=== PATIENT | female | born 1945 | race Caucasian/White ===

== ENCOUNTER → 2016-07-10 | Outpatient (CLI) | payer MEDICARE, OTHER ==
[~2016-07-10] MED LIST: CLON0.5T4 PO; EMPA25TA PO; INSU100V8 SQ; METF10002 PO; OMEP20CA10 PO; OXYC-541 PO; TRAZ-170 PO; VENL150C2 PO
== END ==
LOC: MNT 12:45
PROVIDERS: ATTEND Family Medicine
DX: Z53.9 Procedure and treatment not carried out, unspecified reason (principal)

== ENCOUNTER 2016-10-10 15:27 | Inpatient (IN) ==
[2016-10-10] MEDS ORDERED: NS 1,000 ML IV ONE (16:06)
[2016-10-10] MEDS ORDERED: KETOROLAC 30 MG/ML INJECTION IVP ONE (16:06)
--- NOTE | 2016-10-10 16:10 | Emergency Department Report ---
Abdominal Pain HPI - General Chief Complaint: Abdominal Pain <Remi Burton 10/10/16 18:23> Stated Complaint: bowel obstruction <Remi Burton 10/10/16 18:23> Time Seen by Provider: 10/10/16 15:50 <Remi Burton [facility] 10/10/16 18:23> Source: patient <eb 10/10/16 16:44> Mode of arrival: ambulatory <eb 10/10/16 16:44> Limitations: no limitations <eb 10/10/16 16:44> - History of Present Illness HPI narrative: 71yo woman presents to the ER with abdominal pain. Pt has a long hx (7+ episodes ) of SBO. Most recent episodes have required open reduction of volvulus. Pt presents with identical sx to most recent episodes of SBO. <eb 10/10/16 16:44> MD complaint: abdominal pain <eb 10/10/16 16:44> Onset (ago): hour(s) <10/10/16 16:44> Consistency: constant <10/10/16 16:44> Location: diffuse <10/10/16 16:44> Severity: severe <10/10/16 16:44> Severity scale (1-10): 10 <10/10/16 16:44> Quality: aching, sharp <10/10/16 16:44> Radiation: none <10/10/16 16:44> Migration to: no migration <10/10/16 16:44> Relieving factors: nothing <10/10/16 16:44> Exacerbating factors: vomiting, movement <10/10/16 16:44> Context: history of similar episodes <10/10/16 16:44> Associated symptoms: nausea, vomiting <10/10/16 16:44> - Related Data Home Medications Medication Instructions Recorded Confirmed Metformin HCl 1,000 mg PO BID #0 tab 04/16/16 10/10/16 Trazodone HCl 50 mg PO HS #0 tab 04/16/16 10/10/16 clonazePAM [Clonazepam] 0.5 mg PO BID #0 tab 04/16/16 10/10/16 omeprazole 40 mg capsule,delayed 40 mg PO DAILY cap 09/12/16 10/10/16 release Cyanocobalamin (B-12) [Vit. B-12] 1,000 mg INJ Q2M 10/10/16 10/10/16 Empagliflozin [Jardiance] 25 mg PO DAILY 10/10/16 10/10/16 Insulin Glargine,Hum.rec.anlog 30 unit SQ HS 10/10/16 10/10/16 [Lantus Solostar] Montelukast Sodium [Singulair] 10 mg PO DAILY 10/10/16 10/10/16 Venlafaxine HCl [Venlafaxine HCl 225 mg PO DAILY 10/10/16 10/10/16 ER] <Remi Burton - 10/10/16 18:23> Allergies Allergy/AdvReac Type Severity Reaction Status Date / Time mercury (elemental) Allergy Severe "BLOODY Verified 10/10/16 16:00 RASH" codeine Allergy Intermediate DISORIENTED, Verified 10/10/16 16:00 HYPER Penicillins Allergy Intermediate HIVES Verified 10/10/16 16:00 Sulfa (Sulfonamide Allergy Unknown Verified 10/10/16 16:00 Antibiotics) CONTRAST IODINE Allergy Unknown Uncoded 04/16/16 18:41 <Remi Burton - 10/10/16 18:23> Review of Systems All systems: reviewed and negative except as stated <Caden Robertson - 10/10/16 16 :44> Gastrointestinal: Reports: abdominal pain, nausea, vomiting <JulyCaden - 03/17 16:44> [facility] Patient Stated Medical History Asthma Yes Diabetes Mellitus Type 2 Yes Obstructive Bowel Yes Clinic Medical History (Last Updated 10/10/16 @ 18:17 by Caden Robertson DO) Diabetes mellitus type 2, uncontrolled, without complications (Chronic Medical ~ 1998) Fair control. Should improve with dietary changes and more activity. If not, more aggressive diabetes treatment will be necessary. Hyperlipidemia LDL goal <100 (Chronic Medical) Multinodular goiter (nontoxic) (Chronic Medical ~2014) Nodules are not palpable. I would not necessarily recommend "routine" sonograms every 6 months. However I need to review the previous sonograms and cytology from the [facility] to make a current recommendation. Osteoporosis (Chronic Medical) Now on a drug holiday from [place], but has not had a recent DXA scan which would be helpful in following bone density while going untreated. <Remi Burton 10/10/16 18:23> Patient Stated Medical History Asthma Yes Diabetes Mellitus Type 2 Yes Obstructive Bowel Yes Clinic Medical History (Last Updated 09/18/16 @ 16:14 by Christiano Edwards MD) Diabetes mellitus type 2, uncontrolled, without complications (Chronic Medical ~ 1998) Fair control. Should improve with dietary changes and more activity. If not, more aggressive diabetes treatment will be necessary. Hyperlipidemia LDL goal <100 (Chronic Medical) Multinodular goiter (nontoxic) (Chronic Medical ~2014) Nodules are not palpable. I would not necessarily recommend "routine" sonograms every 6 months. However I need to review the previous sonograms and cytology from the [facility] to make a current recommendation. Osteoporosis (Chronic Medical) Now on a drug holiday from [place], but has not had a recent DXA scan which would be helpful in following bone density while going untreated. <10/10/16 16:44> Surgical History: tailbone repair <10/10/16 16:10> Family History: Family History (Last Reviewed 09/18/16 @ 15:36 by Christiano Edwards MD) Father Diabetes Cancer of pancreas Paternal Grandmother Cancer Paternal Grandfather Cancer <Remi Burton 10/10/16 18:23> Family History (Last Reviewed 09/18/16 @ 15:36 by Christiano Edwards MD) Father Diabetes Cancer of pancreas Paternal Grandmother Cancer Paternal Grandfather Cancer <10/10/16 16:10> - Social History Smoking status: Never smoker <10/10/16 16:10> Physical Exam - Limitations Limitations: no limitations <10/10/16 16:44> - General General appearance: alert, anxious, in distress, obese < 16:44> - Normal Exams: Head:: Normocephalic without trauma <10/10/16 16:44> Eyes:: Pupils are PERRLA w/ EOMI, No scleral icterus, irritation, or foreign bodies noted <July,Caden 10/10/16 16:44> ENMT:: No facial trauma, nasal exudates, pharyngeal erythema, or exudates are noted <eb 10/10/16 16:44> Neck:: Full range of motion, without adenopathy, JVD, bruits or thyromegaly < eb 10/10/16 16:44> Chest/Respirations:: Clear all cabral, with good airflow, and symmetry bilaterally <10/10/16 16:44> Cardiovascular:: Regular rate and rhythm, without murmur or gallop, Pulses 2+ all extremities, capillary refill, <2 seconds all extremities <eb 10/10/16 16:44> Lymphatic:: No lymphadenopathy, or lymphedema noted <10/10/16 16 :44> Musculoskeletal:: No tenderness, or deformity noted, good range of motion, all extremities <10/10/16 16:44> Integumentary:: No rashes, hives, or bruising noted, hair and nails, without abnormality <10/10/16 16:44> Neurological:: Patient is alert, and oriented, cranial nerves, motor/sensory/ cerebellar, exams w/o gross deficits, to observation <10/10/16 16:44> Psychiatric:: Patient exhibits, appropriate attention, emotion and affect <July10/10/16 16:44> - Abdominal Exam Abdominal exam: Present: soft, distention, tenderness (Diffusely), rebound, hyperactive bowel sounds. Absent: guarding, psoas sign, obturator sign, Dougherty' s sign, hernia <10/10/16 16:44> Course - Consultations Consultation #1: Dr. Lugo: Requests consult to surgeon. 181: Accepted pt for admission. <10/10/16 18:17> Time: 17:30 <10/10/16 17:40> Consultation #2: Dr. Bruno: Declines admission as primary. <10/10/16 17:47> Time: 17:40 <10/10/16 17:40> Vital Signs Temperature 98.1 F 10/10/16 15:49 Pulse Rate 65 10/10/16 15:49 Respiratory Rate 20 10/10/16 15:49 Blood Pressure 198/81 H 10/10/16 15:49 Pulse Oximetry 97 10/10/16 15:49 Temperature 98.1 F 10/10/16 15:49 Pulse Rate 65 10/10/16 15:49 Respiratory Rate 20 10/10/16 15:49 Blood Pressure 178/75 H 10/10/16 16:37 Pulse Oximetry 97 10/10/16 15:49 <Remi Burton 10/10/16 18:23> Vital Signs Temperature 98.1 F 10/10/16 15:49 Pulse Rate 65 10/10/16 15:49 Respiratory Rate 20 10/10/16 15:49 Blood Pressure 198/81 H 10/10/16 15:49 Pulse Oximetry 97 10/10/16 15:49 Temperature 98.1 F 10/10/16 15:49 Pulse Rate 65 10/10/16 15:49 Respiratory Rate 20 10/10/16 15:49 Blood Pressure 198/81 H 10/10/16 15:49 Pulse Oximetry 97 10/10/16 15:49 <10/10/16 16:10> Abdominal Pain - Differential Diagnosis Differential diagnosis: Likely: abdominal pain, constipation, gastroenteritis, small bowel obstruction <10/10/16 17:16> - Medical Records Attestation: I reviewed the patient's medical records. < 17:16> - Lab Data Attestation: I reviewed the patient's lab results. <eb 10/10/16 17: 16> Result diagrams: 10/10/16 16:36 10/10/16 16:34 <Remi Burton 10/10/16 18:23> Lab Results 10/10/16 10/10/16 10/10/16 Range/Units 16:34 16:36 17:45 WBC 13.9 H (4.5-11.0) T/MM3 RBC 4.78 (4.00-5.20) M/MM3 Hgb 14.8 (12-16) GM/DL Hct 43.8 (36-46) % MCV 91.6 (80-100) UM3 MCH 31.0 (26-34) UUG MCHC 33.8 (31-37) GM/DL RDW Std Deviation 40.8 (36.9-50.2) FL Plt Count 243 (130-400) T/MM3 MPV 10.9 (9.4-12.4) UM3 Immature Gran % (Auto) 0.1 (0.0-0.5) % Neut % (Auto) 76.0 H (33-66) % Lymph % (Auto) 16.4 L (23-45) % [place] % (Auto) 6.3 (0-9.0) % Eos % (Auto) 0.8 (0-4) % Baso % (Auto) 0.4 (0-2) % Neut # 10.6 H (1.8-7.7) T/MM3 Lymph # 2.3 (1-4.8) T/MM3 [place] # 0.9 H (0-0.8) T/MM3 Eos # 0.1 (0-0.5) T/MM3 Baso # 0.1 (0-0.2) T/MM3 Abs Immat Gran (auto) 0.02 (0.00-0.03) T/MM3 Turbidity < 20 (0-20) Sodium 140 (134-144) MEQ/L Potassium 4.3 (3.6-5) MEQ/L Chloride 106 (98-107) MEQ/L Carbon Dioxide 21 L (22-30) MEQ/L Anion Gap 13 (5-15) MEQ/L BUN 23.0 H (7-17) MG/DL Creatinine 0.8 (0.7-1.2) MG/DL GFR Calculation 70 BUN/Creatinine Ratio 29 H (6-26) RATIO Glucose 103 (65-110) MG/DL Calculated Osmolality 273 (261-280) MOSM/KG Calcium 9.9 (8.4-10.2) MG/DL Total Bilirubin 0.50 (0.20-1.30) MG/DL Icterus Index < 2 (0-7) AST 30 (14-36) U/L ALT 41 (9-52) U/L Alkaline Phosphatase 169 H (38-126) U/L Total Protein 8.3 H (6.3-8.2) G/DL Albumin 4.7 (3.5-5.0) G/DL Globulin 3.6 (2.4-3.6) G/DL Albumin/Globulin Ratio 1.3 (1.1-2.2) RATIO Lipase 85 (23-300) U/L Specimen Hemolysis < 15 (0-25) Ur Collection Type Urine, clean catch Urine Color Yellow (YELLOW) Urine Clarity Cloudy Urine pH 6.0 (5.0-8.0) Ur Specific [place] 1.010 L (1.015-1.025) Urine Protein Negative (NEGATIVE) Urine Glucose (UA) 3+ A (NEGATIVE) Urine Ketones 1+ A (NEGATIVE) Urine Occult Blood Trace-intact (NEGATIVE) Urine Nitrate Negative (NEGATIVE) Urine Bilirubin Negative (NEGATIVE) Urine Urobilinogen 0.2 (NORMAL) EU/DL Ur Leukocyte Esterase 1+ A (NEGATIVE) Urine RBC 3-5 H (0-3) /HPF Urine WBC 5-10 H (0-5) /HPF Ur Squamous Epith Cells 0-5 Urine Bacteria 3+ H (NEGATIVE) Ur Culture Indicated? Cult not indicated <Remi Burton 10/10/16 18:23> - Radiology Data Attestation: I reviewed the patient's radiology results. <eb 17:16> KUB: Obstructive bowel gas pattern. <eb 10/10/16 17:16> Disposition Clinical Impression: Small bowel obstruction, Small bowel obstruction <Josephine10/10/16 18:23> Disposition: 02 To [facility] <Josephine10/10/16 18:23> Condition: Improved <Josephine10/10/16 18:23> Instructions: <JosephineRemi 10/10/16 18:23> Prescriptions: No Action Insulin Glargine,Hum.rec.anlog [Lantus Solostar] 30 unit SQ HS Empagliflozin [Jardiance] 25 mg PO DAILY Venlafaxine HCl [Venlafaxine HCl ER] 225 mg PO DAILY Cyanocobalamin (B-12) [Vit. B-12] 1,000 mg INJ Q2M Metformin HCl 1,000 mg PO BID #0 tab clonazePAM [Clonazepam] 0.5 mg PO BID #0 tab Trazodone HCl 50 mg PO HS #0 tab Montelukast Sodium [Singulair] 10 mg PO DAILY omeprazole 40 mg capsule,delayed release 40 mg PO DAILY cap <Remi Burton - 10/10/16 18:23> Referrals: Jeanna Osorio MD [Family Provider] - <Remi Burton - 10/10 18:23> Forms: <Remi Burton - 10/10/16 18:23> Time of Disposition: 18:17 <Caden Robertson [facility] 10/10/16 18:17> - Seen By: physician <Caden Robertson [facility] 10/10/16 18:17>
[2016-10-10] MEDS ORDERED: ONDANSETRON 4 MG/2 ML INJECTION IVP ONE (16:16)
[2016-10-10] MEDS: SALINE FLUSH 10ml SYRINGE IVF PRN ×3 (16:29→20:19)
[2016-10-10] MEDS ORDERED: MORPHINE SULFATE 2 MG SYRINGE IVP ONE (16:42)
[2016-10-10] MEDS ORDERED: IOHEXOL 300mg/ml 100ml INJECTION ONE (18:03)
[2016-10-10 19:57] VITALS: BMI 36.0
[2016-10-10] MEDS ORDERED: NS 1,000 ML IV SCH (20:00)
[2016-10-10] MEDS ORDERED: MORPHINE SULFATE 2 MG SYRINGE IVP PRN (20:00)
--- NOTE | 2016-10-10 20:04 | History & Physical Report ---
<Rudy Hardin - Last Filed: 10/10/16 20:57> History of Present Illness Date: 10/10/16 Chief complaint: abd pain HPI: very pleasant 71-year-old white female presents to the emergency room with 1 week worth of abdominal pain. then mainly on her left side, she denies any epigastric 'stomach pain, this is been associated with bloating, and she's not had a bowel movement in 3 days. she rarely passes flatus, that she woke up actually feeling fine this morning, she ate breakfast, but then around 11;30 for pain became much worse. severe cramping, across her entire abdomen. she vomited once, and then had some dry heaves throughout the day. try to lay down for a couple hours but because the pain became excruciating she came to the hospital. there a kub determined she had a small bowel obstruction, similar to those that she's had the past, she has a complicated intra-abdominal surgical history, this started around 1998 when she had a hysterectomy/BSO, following this she had pancreatitis, she had a cyst that was 'stapled to her stomach', this led to some complications, she later had a cholecystectomy, and following recovery of this has had 2 hernias repaired with mesh (unclear timing to me) and several episodes of SBO. The last open surgery she had to relieve an obstruction was 15 years ago, she has had NG tubes placed to deal with instructions a few times since then, the last one was about 2 years ago. She actually had an attempted gastric bypass surgery for weight loss, this was 5 years ago, but they were unable to complete this because of the previous surgeries etc. [facility]. She recently moved from [facility] to the near her grandson and son here in [place] her pain initially was 10 out of 10, as i'm visiting with her she is nauseated and has pain of about 9/10. she is only received 1 dose of 2 mg so far. a verbal report given to me by the daytime hospitalist indicates scan showed a transition point in the left abdominal region around some mesh Review of Systems All systems: reviewed and no additional remarkable complaints except as stated ( she had recent tailbone procedure in May (sacroplasty) and has occasional R sided sciatica. She has not taken any pills or meds today. Sugar this am 2 h post prandial was 187, not taken since then) Review of systems: some chills/sweats but no marshall fevers. Denies ALFARO, denies dysuria, hx constipation and miralax makes her sick, linzess " did not work" [facility] Patient Stated Medical History Glaucoma watching for Asthma Yes Diabetes Mellitus Type 2 Yes Gastroesophageal Reflux Yes Disease Hiatal Hernia Yes Obstructive Bowel Yes: 9, bowel surgeries no resection Other GI Yes: barretts esophagus Shingles Yes: 5 years ago Depression Yes Clinic Medical History (Last Updated 10/10/16 @ 18:17 by Caden Robertson DO) Diabetes mellitus type 2, uncontrolled, without complications (Chronic Medical ~ 1998) Fair control. Should improve with dietary changes and more activity. If not, more aggressive diabetes treatment will be necessary. Hyperlipidemia LDL goal <100 (Chronic Medical) Multinodular goiter (nontoxic) (Chronic Medical ~2014) Nodules are not palpable. I would not necessarily recommend "routine" sonograms every 6 months. However I need to review the previous sonograms and cytology from the [facility] to make a current recommendation. Osteoporosis (Chronic Medical) Now on a drug holiday from [place], but has not had a recent DXA scan which would be helpful in following bone density while going untreated. Sacral fracture 2016 s/p sacroplasty May 2016 Surgical History: tailbone repair. 1998 MACY /BSO. 2011 attempted gastric bypass, aborted d/t adhesions etc. 2001 open SBO release. 1998ish - cholecystectomy, pancreatic cyst issues Family History: Family History (Last Reviewed 09/18/16 @ 15:36 by Christiano Edwards MD) Father Diabetes Cancer of pancreas Paternal Grandmother Cancer Paternal Grandfather Cancer - Social History Smoking status: Former smoker Alcohol intake frequency: holidays/special occasions only Housing: house Household members: spouse Social history: Moved from [place], [place] Apr 2016 to be closer to son and grandson to help with her who has dementia Medications Home Medications Medication Instructions Recorded Confirmed Type Metformin HCl 1,000 mg PO BID #0 tab 04/16/16 10/10/16 History Trazodone HCl 50 mg PO HS #0 tab 04/16/16 10/10/16 History clonazePAM [Clonazepam] 0.5 mg PO BID #0 tab 04/16/16 10/10/16 History omeprazole 40 mg capsule,delayed 40 mg PO DAILY cap 09/12/16 10/10/16 History release Cyanocobalamin (B-12) [Vit. B-12] 1,000 mg INJ Q2M 10/10/16 10/10/16 History Empagliflozin [Jardiance] 25 mg PO DAILY 10/10/16 10/10/16 History Insulin Glargine,Hum.rec.anlog 30 unit SQ HS 10/10/16 10/10/16 History [Lantus Solostar] Montelukast Sodium [Singulair] 10 mg PO DAILY 10/10/16 10/10/16 History Venlafaxine HCl [Venlafaxine HCl 225 mg PO DAILY 10/10/16 10/10/16 History ER] Allergies Allergy/AdvReac Type Severity Reaction Status Date / Time mercury (elemental) Allergy Severe "BLOODY Verified 10/10/16 16:00 RASH" codeine Allergy Intermediate DISORIENTED, Verified 10/10/16 16:00 HYPER Penicillins Allergy Intermediate HIVES Verified 10/10/16 16:00 Sulfa (Sulfonamide Allergy Unknown Verified 10/10/16 16:00 Antibiotics) CONTRAST IODINE Allergy Unknown Uncoded 04/16/16 18:41 Exam Vital Signs: Temperature 97.5 F 10/10/16 19:32 Pulse Rate 54 L 10/10/16 19:32 Respiratory Rate 19 10/10/16 19:32 Blood Pressure 167/68 H 10/10/16 19:32 Pulse Oximetry 99 10/10/16 19:32 Oxygen Delivery Method Room Air Height: 1.57 m Weight: 89.4 kg Body Mass Index: 36.0 - Constitutional Present: mild distress, well nourished, obese - Routine HEENT Exam Head: Present: normocephalic Eye: Present: EOMI, PERRL - Routine Respiratory Exam Present: CTA bilaterally. Absent: accessory muscle use, wheezes - Routine Cardiovascular Exam Present: RRR, S1, S2, no murmur - Routine Abdominal Exam Present: soft, tenderness, distended - Routine Extremities Exam Present: edema, full ROM (1+ edema) - Routine Skin Exam Present: intact - Routine Neurological Exam Present: alert, oriented X3 - Routine Psychiatric Exam Present: normal affect Results - Labs CBC & Chem 7: 10/10/16 16:36 10/10/16 16:34 - Imaging and Cardiology CT scan - abdomen Status: pending (verbal prelim report with SBO and transition point at mesh.) Abdominal x-ray Additional comments: air fluid levels Assessment and Plan (1) Small bowel obstruction Problem details: POA Current visit: Yes Status: Acute ng tube has been placed, she's had about 400 cc out. i'm concerned that this may be a surgical issue, hopefully this can be managed conservatively with her complicated history. Dr Anna Cantu' has been contacted by the emergency room for consultation. she is having severe pain, and a lot of iv every 2 hours as needed for the moment but more may be necessary. nothing by mouth, iv fluids with dextrose and correctional insulin for some caloric intake. Check lactate level 10/10/16 21:09 10/10/16 21:10 (2) Diabetes mellitus type 2, uncontrolled, without complications Problem details: Metformin, insulin and incretin therapy Current visit: No Status: Chronic 10/10/16 21:11 IV dextrose and correctional insulin with half dose lantus HS, holding metformin w contrast and NPO (3) Fibromyalgia Current visit: Yes Status: Acute 10/10/16 21:12 she said that opiates don't help her, she has not discussed this month with her primary care physician dealing with diabetes more. she denies ever trying gabapentin or other meds (4) History of migraine headaches Current visit: Yes Status: Acute (5) Asthma, mild persistent Current visit: Yes Status: Acute 10/10/16 21:13 PRN albuterol, usually on HS meds PO DVT Prophylaxis: SCD's, Lovenox GI Prophylaxis: Protonix Resuscitation Status: Full Code Sepsis Assessment - Evaluation Possible source: GI tract/intra-abdominal Confirmed Suspected Infection: No Hospital Course Summary Disclaimer: The visit summary below is not to be considered part of the above Progress Note. <Janett Palencia - Last Filed: 10/11/16 11:18> History of Present Illness Date: 10/11/16 [facility] Patient Stated Medical History Glaucoma watching for Asthma Yes Diabetes Mellitus Type 2 Yes Gastroesophageal Reflux Yes Disease Hiatal Hernia Yes Obstructive Bowel Yes: 9, bowel surgeries no resection Other GI Yes: barretts esophagus Shingles Yes: 5 years ago Depression Yes Clinic Medical History (Last Updated 10/10/16 @ 21:15 by Rudy Hardin MD ) Multinodular goiter (nontoxic) (Chronic Medical ~2014) Nodules are not palpable. I would not necessarily recommend "routine" sonograms every 6 months. However I need to review the previous sonograms and cytology from the [facility] to make a current recommendation. Diabetes mellitus type 2, uncontrolled, without complications (Chronic Medical ~ 1998) Metformin, insulin and incretin therapy Hyperlipidemia LDL goal <100 (Chronic Medical) Osteoporosis (Chronic Medical) Now on a drug holiday from [place], but has not had a recent DXA scan which would be helpful in following bone density while going untreated. Family History: Family History (Last Reviewed 09/18/16 @ 15:36 by Christiano Edwards MD) Father Diabetes Cancer of pancreas Paternal Grandmother Cancer Paternal Grandfather Cancer Exam Vital Signs: Temperature 97.6 F 10/11/16 08:00 Pulse Rate 69 10/11/16 08:01 Respiratory Rate 18 10/11/16 08:00 Blood Pressure 130/91 H 10/11/16 08:00 Pulse Oximetry 96 10/11/16 08:00 Oxygen Delivery Method Room Air Height: 5 ft 2 in Weight: 90.4 kg Results - Labs CBC & Chem 7: 10/11/16 02:19 10/11/16 02:19 Assessment and Plan (1) Diabetes mellitus type 2, uncontrolled, without complications Problem details: Metformin, insulin and incretin therapy Current visit: No Status: Chronic (2) Small bowel obstruction Problem details: POA Current visit: Yes Status: Acute (3) Fibromyalgia Current visit: Yes Status: Acute (4) History of migraine headaches Current visit: Yes Status: Acute (5) Asthma, mild persistent Current visit: Yes Status: Acute Assessment and Plan: Patient seen and independently examined. Patient presents with her typical symptoms of a small bowel obstruction. Patient states that this is her ninth. States that she currently feels much better after coming to the hospital. She is still not having a bowel movement or passing gas. Pain is much improved. Patient states that when she was in [facility] she had a test performed where afterwards she started to to pass gas and have a bowel movement. Patient relates she was seen by a surgeon this morning and was told that they do not want to proceed to surgery at this time and are hoping that it resolves conservatively. Case discussed with family at bedside. General-awake alert oriented 3, in no acute distress HEENT-PERRLA, EOMI CV-RRR Lungs-CTA B Abdomen-soft, NT, distended, BS - Extremities-no ECC Neurologic-nonfocal Labs and imaging reviewed. Assessment and plan: Continue with conservative treatment with NG tube. We will add scheduled Reglan. We will start scheduled enemas. Continue pain control. Will obtain records from [facility] to review previous therapies. Hospital Course Summary Disclaimer: The visit summary below is not to be considered part of the above Progress Note.
[2016-10-10] MEDS ORDERED: PROCHLORPERAZINE 10 MG/2 ML INJECTION IVP PRN (20:12)
[2016-10-10] MEDS: ONDANSETRON 4 MG/2 ML INJECTION IVP PRN (20:18)
[2016-10-10] MEDS: HYDROMORPHONE 2 MG/ML INJECTION IVP PRN ×2 (20:18→22:18)
[2016-10-10] MEDS ORDERED: ALBUTEROL 2.5mg/3ml (0.083%) NEB AEROSOL PRN (21:40)
[2016-10-10] MEDS ORDERED: DEXTROSE 50% SYRINGE 50ml (1 AMP) IVP PRN (21:44)
[2016-10-10] MEDS ORDERED: GLUCOSE ORAL GEL 40% 37.5gm PO PRN (21:44)
[2016-10-10] MEDS: D5-1/2NS with KCL 20mEq 1,000 ML IV SCH (21:59)
[2016-10-10] MEDS ORDERED: INSULIN GLARGINE 100unit/ml INJECTION SQ SCH (22:00)
[2016-10-11] MEDS: ONDANSETRON 4 MG/2 ML INJECTION IVP PRN ×2 (04:48→11:46)
[2016-10-11] MEDS: HYDROMORPHONE 2 MG/ML INJECTION IVP PRN ×2 (04:48→20:47)
[2016-10-11] MEDS: D5-1/2NS with KCL 20mEq 1,000 ML IV SCH ×3 (06:08→23:47)
[2016-10-11] MEDS: INSULIN ASPART 100unit/ml INJECTION SQ PRN ×2 (07:17→18:12)
--- NOTE | 2016-10-11 08:12 | CT Scan Report ---
Indication: SBO PROCEDURE: CT chest/abd/pelvis wo con: Encounter: Subsequent Comparison: None Technique: Axial CT images were performed through the chest, abdomen and pelvis without intravenous contrast. Coronal and sagittal two-dimensional reformats. Automated Exposure Control and Iterative Reconstruction dose reducing techniques were utilized. Findings: Chest: Lungs are clear. No pleural effusion or pneumothorax. Central airways are patent. No axillary or mediastinal adenopathy. Heart size is normal. No pericardial effusion. Small hiatal hernia. Chronic appearing biconcave compression fracture of T4. Abdomen/pelvis: The unenhanced contours of the liver are unremarkable. Gallbladder is not seen and reportedly surgically absent. The spleen is unremarkable. Postoperative changes in the stomach. Pancreas and adrenal glands are grossly normal. No abdominal or pelvic adenopathy. Kidneys appear normal. Postsurgical changes in the omental region with probable hernia repair mesh. Prior sacroplasty procedure. Bladder is normal. Uterus is absent. There are some mildly dilated small bowel loops in the pelvis measuring up to 3.5 cm in diameter with some mesenteric inflammatory change nearby. There is fecalization seen in the right upper pelvis that appears to be a zone of transition. Decompressed small bowel is seen in the ileum entering the cecum. Degenerative change in the lower lumbar spine. Impression: Dilated fecalized loops of small bowel in the anterior lower abdomen and pelvis probably representing a moderate partial small bowel obstruction due to adhesion. Surgical evaluation is recommended. There is a preliminary report by Viy[facility]. .
--- NOTE | 2016-10-11 08:15 | XRay Report ---
Indication: H/o SBO PROCEDURE: XR KUB w upright: Encounter: Initial Comparison: CT abdomen and pelvis from the same date Findings: Lung bases are clear. No free air. Prior sacral plasty procedure with coils also noted in the left upper quadrant of the abdomen. Occasional air-fluid levels in nondilated small bowel. Bony structures are unremarkable. Moderate stool in the colon. Impression: Radiographically the bowel gas pattern is nonobstructive, however the dilated fluid-filled small bowel loops seen on CT suggesting an obstruction are not visible on this exam. .
[2016-10-11] MEDS: SALINE FLUSH 10ml SYRINGE IVF PRN ×2 (08:16→20:42)
[2016-10-11] MEDS: PANTOPRAZOLE 40 MG INJECTION IVP SCH ×2 (08:16→20:36)
[2016-10-11] MEDS: ENOXAPARIN 40 MG/0.4 ML INJECTION SQ SCH (08:16)
[2016-10-11] MEDS: FLEET PHOSPHO - SODA ENEMA 133ml PR SCH ×2 (11:43→23:00)
[2016-10-11] MEDS ORDERED: METOCLOPRAMIDE 10mg/2ml INJECTION IVP PRN (12:00)
[2016-10-11] MEDS: METOCLOPRAMIDE 10mg/2ml INJECTION IVP SCH ×2 (13:03→20:30)
--- NOTE | 2016-10-11 17:03 | General Surgery Consult Note ---
Consult date: 10/11/16 Attending Physician: Huy Lugo MD [facility] Medical History (Last Updated 10/10/16 @ 21:15 by Rudy Hardin MD ) Diabetes mellitus type 2, uncontrolled, without complications (Chronic Medical ~ 1998) Metformin, insulin and incretin therapy Hyperlipidemia LDL goal <100 (Chronic Medical) Multinodular goiter (nontoxic) (Chronic Medical ~2014) Nodules are not palpable. I would not necessarily recommend "routine" sonograms every 6 months. However I need to review the previous sonograms and cytology from the [facility] to make a current recommendation. Osteoporosis (Chronic Medical) Now on a drug holiday from [place], but has not had a recent DXA scan which would be helpful in following bone density while going untreated. Medical History Updates: ADD. Morbid Obesity (Chronic). Comment: had attempted open gastric bypass in 2009 that was abandoned due to extensive adhesions and scar. Medical management now. ADD. Sacral fracture (Resolved) onset = 04/2016. Comment: S/P sacroplasty. ADD. Fibromyalgia (Chronic). ADD. Asthma (Chronic). ADD. Small bowel obstruction (Chronic). Comment: S/ P exploratory laparotomy 2003 and 2007. Surgery in 2007 was 8-10 hours and was complicated with a wound dehiscence. Multiple other episodes resolved with conservative managment. Surgical History: * Sacropexy - 2016. * Attempted open gastric bypass - 2009 at [facility] in [place], [place]. Surgery was aborted d /t extensive adhesions and hemorrhage. * Exploratory laparotomy for bowel obstruction - [address] Johnson at [facility] in [place], [place]. Surgery was 8-10 hours and was complicated by a wound dehiscence treated with chronic wound vac therapy. * Exploratory laparotomy for bowel obstruction - [address] Johnson at [facility] in [place], [place]. * Open cholecystectomy and pancreatic cyst-gastrostomy - 05/[address] Johnson at [facility] in [place], [place] * Open redo hiatal hernia repair - [address] Johnson at [facility] in [place], [place]. * Open hiatal hernia repair - [address] Johnson at [facility] in [place], [place]. * MACY/ BSO via pfannenstiel incision - 1994 Family History: Family History (Last Reviewed 09/18/16 @ 15:36 by Christiano Edwards MD) Father Diabetes Cancer of pancreas Paternal Grandmother Cancer Paternal Grandfather Cancer Family History Updates: Paternal Grandfather - Change cancer to Leukemia. ADD- Mother: Dementia - Social History Smoking status: Former smoker Alcohol intake frequency: holidays/special occasions only Household members: spouse Social history: . Has 2 dogs. Medications Home Medications Medication Instructions Recorded Confirmed Type Metformin HCl 1,000 mg PO BID #0 tab 04/16/16 10/10/16 History Trazodone HCl 50 mg PO HS #0 tab 04/16/16 10/10/16 History clonazePAM [Clonazepam] 0.5 mg PO BID #0 tab 04/16/16 10/10/16 History omeprazole 40 mg capsule,delayed 40 mg PO DAILY cap 09/12/16 10/10/16 History release Cyanocobalamin (B-12) [Vit. B-12] 1,000 mg INJ Q2M 10/10/16 10/10/16 History Empagliflozin [Jardiance] 25 mg PO DAILY 10/10/16 10/10/16 History Insulin Glargine,Hum.rec.anlog 30 unit SQ HS 10/10/16 10/10/16 History [Lantus Solostar] Montelukast Sodium [Singulair] 10 mg PO DAILY 10/10/16 10/10/16 History Venlafaxine HCl [Venlafaxine HCl 225 mg PO DAILY 10/10/16 10/10/16 History ER] Allergies Allergy/AdvReac Type Severity Reaction Status Date / Time mercury (elemental) Allergy Severe "BLOODY Verified 10/10/16 16:00 RASH" codeine Allergy Intermediate DISORIENTED, Verified 10/10/16 16:00 HYPER Penicillins Allergy Intermediate HIVES Verified 10/10/16 16:00 Sulfa (Sulfonamide Allergy Unknown Verified 10/10/16 16:00 Antibiotics) CONTRAST IODINE Allergy Unknown Uncoded 04/16/16 18:41 Review of Systems 10-point ROS: negative except for HPI and the following: - General General: Present: chills, night sweats - Musculoskeletal Musculoskeletal: Present: neck pain, back pain, joint pain Additional comments: due to fibromyalgia - Laboratory Result Diagrams: 10/11/16 02:19 10/11/16 02:19 Disregard lab values from 10/11 - unable to delete from template. General Surgery Results - Results Labs: 10/11/16 02:19 10/11/16 02:19 Hospital Course Summary Disclaimer: The visit summary below is not to be considered part of the above Progress Note. Sepsis Assessment - Evaluation Sepsis screening result: No Definite Risk
--- NOTE | 2016-10-11 19:03 | Progress Note ---
DATE OF VISIT 10/11/2016 REASON FOR VISIT Follow small bowel obstruction. SUBJECTIVE Rea reports more sharp pain in the left upper quadrant that radiates across. She still feels rather uncomfortable but better than yesterday. She had some nausea and nearly vomited as they were repositioning the patient. She has continued to have some NG tube output. She did receive an enema and after passing the enema had a bowel movement about 30 minutes later. OBJECTIVE VITAL SIGNS: Temperature 96.1, pulse 57, blood pressure 131/66, respiratory rate 18, oxygen saturation 97% on room air. GENERAL: The patient is awake and alert, in no acute distress. ABDOMEN: Soft, obese, tender in the left upper quadrant but nontender in the lower quadrants. NG tube output was 500 mL since placement. LABORATORY DATA White blood cell count 12.5, AST increased to 610, ALT increased to 246. Alkaline phosphatase increased to 244. ASSESSMENT Partial small bowel obstruction secondary to adhesions. The patient has very hostile abdomen and is not a good surgical candidate. This still appears to be a nonoperative problem. PLAN 1. Continue NG tube. 2. I will check a KUB in the morning. If KUB does not show any significant problems and she clinically is improving, then a Gastrografin small bowel follow -through could be ordered before the weekend to see if she is opening up and could be started on a diet. 3. If she clinically is worse or if Gastrografin small bowel follow-through fails to have an appropriate transit time, then she will likely need TPN beginning tomorrow and continued observation since she is such a poor operative candidate due to the hostile nature of her abdomen as evidenced by prior surgeries. AKHIL
--- NOTE | 2016-10-11 19:54 | Consultation ---
DATE OF CONSULTATION 10/10/2016 CONSULTING PHYSICIAN Trae Bruno MD REQUESTING PHYSICIAN Dr. Lugo REASON FOR CONSULTATION Small bowel obstruction. IMPRESSION 1. Partial small bowel obstruction likely secondary to dense intraabdominal adhesions. The patient is a poor operative candidate since her last operation lasted eight to ten hours. She had had another attempted operation that was abandoned due to the level of adhesions and hemorrhage that had developed during dissection. 2. Obesity with BMI of 36.5. 3. Type 2 diabetes mellitus - chronic, insulin-dependent. 4. Fibromyalgia - chronic. 5. Asthma - chronic. RECOMMENDATIONS 1. Agree with NG tube placement. 2. I would give the patient a very long trial of conservative management potentially even including TPN for nutrition given the fact that she is a poor candidate for exploratory laparotomy and lysis of adhesions. 3. If she does require surgery I would consider transfer to a more tertiary center because of her prior complicated surgical issues including wound dehiscence with wound VAC management. 4. N.p.o.. 5. I did explain to the patient that if she desired she could request suppositories or enemas but that suppositories may cause increased motility that might lead to more pain if she continues to have an obstruction. HISTORY OF PRESENT ILLNESS Rea is a 71-year-old female patient of Dr. Jeanna Osorio who recently moved to the [facility] in April 2016 from [place], [place]. She has a very complicated surgical history with an extensive history of multiple small bowel obstructions requiring two exploratory laparotomies. Her most recent exploratory laparotomy was in [address] Johnson. Her surgery was eight to ten hours long and she also suffered a wound dehiscence following the procedure. She had had an attempted open bariatric surgery in 2009 that was abandoned due to the level of the intraabdominal adhesions and hemorrhage that developed. The patient had done well following her last surgery until 2012. She then developed a bowel obstruction that was successfully managed with conservative management. She had another most recent bowel obstruction in 2014. She has dealt with constipation since going off of daily laxative use. This episode started this morning. She had taken a laxative last night and she thought she was having abdominal cramping due to constipation but she did not have a bowel movement. About 12:30 she laid down due to the pain and by 2:13 in the afternoon her pain was excruciating. She rated it 10 out of 10 in severity. She was having waves of sharp pain with less severe achy pain in between. She had nausea and was tasting bile in her throat. She did vomit on the way to the hospital and had some dry heaves since. She was evaluated in the emergency department and due to her symptoms it was felt she needed to be admitted to the hospital for small bowel obstruction. She had a CT scan of the abdomen and pelvis along with a chest performed. CT had shown findings consistent with a potential small bowel obstruction. PAST MEDICAL HISTORY, PAST SURGICAL HISTORY, FAMILY HISTORY, SOCIAL HISTORY, ALLERGIES, MEDICATIONS, REVIEW OF SYSTEMS Performed in the electronic General Surgery consult note. See the EMR. PHYSICAL EXAMINATION VITAL SIGNS: Temperature 97.5, pulse 54, blood pressure 167/68, respiratory rate 19, oxygen saturation 99% on room air. GENERAL: The patient is awake and alert. She is in mild distress secondary to pain. She is lying in bed. HEENT: Sclerae clear. Extraocular muscles intact. She does have an NG tube in place. NECK: Supple with a midline trachea. No lymphadenopathy or thyromegaly are noted. HEART: Regular rate and rhythm. LUNGS: Clear to auscultation bilaterally. ABDOMEN: Soft, obese, tender diffusely but more in the upper abdomen than the lower abdomen. There is no guarding or rebound noted. She has a well-healed upper midline incision that extends down to the lower abdomen. There is also a small feeding tube incision in the left abdomen. No masses are palpated. EXTREMITIES: No clubbing or cyanosis. There is mild edema. NEUROLOGIC: Cranial nerves II-XII are grossly intact. PSYCHIATRIC: Normal mood and affect. LABORATORY DATA White blood cell count 13.9. IMAGING KUB was personally reviewed by me. There were mild air-fluid levels but no significant obstruction. CT scan of the abdomen and pelvis was also personally reviewed by me. There was some density beneath the muscle layer as well as between the stomach and the anterior abdominal wall. There was what appeared to be vascular coils in the area of the splenic hilum. There were jessi present at the wall of the stomach. There were dilated small bowel loops with distal decompressed small bowel loops and stool in the right colon but decompressed left colon. Radiology report was unavailable. My plan for nonoperative management was discussed with the patient and her . They were in agreement with the plan currently. MTDD
[2016-10-12] MEDS: METOCLOPRAMIDE 10mg/2ml INJECTION IVP SCH ×4 (01:35→18:00)
[2016-10-12] MEDS: INSULIN ASPART 100unit/ml INJECTION SQ PRN ×4 (01:35→22:16)
[2016-10-12] MEDS: FLEET PHOSPHO - SODA ENEMA 133ml PR SCH ×2 (08:12→22:23)
[2016-10-12] MEDS: PANTOPRAZOLE 40 MG INJECTION IVP SCH ×2 (08:15→22:16)
[2016-10-12] MEDS: D5-1/2NS with KCL 20mEq 1,000 ML IV SCH ×2 (08:15→16:49)
[2016-10-12] MEDS: ENOXAPARIN 40 MG/0.4 ML INJECTION SQ SCH (08:15)
[2016-10-12] MEDS: SALINE FLUSH 10ml SYRINGE IVF PRN ×2 (08:19→22:24)
--- NOTE | 2016-10-12 09:29 | XRay Report ---
Indication: Follow SBO and check NGT placement PROCEDURE: XR KUB w upright: Encounter: Initial Comparison: October 10, 2016 Findings: New nasogastric tube in place with the tip projecting over the fundus of the stomach. Coils noted in the left upper quadrant of the abdomen. No abnormally dilated small bowel loops appreciated. Scattered small air-fluid levels present. Lung bases are grossly clear. Scattered colonic gas to the level of the rectum. Impression: New nasogastric tube as above. Radiographically the bowel gas pattern remains nonobstructive. .
--- NOTE | 2016-10-12 11:46 | Progress Note ---
Subjective: Was very anxious overnight and required a dose of IV Ativan. States that she is passing gas now. No bowel movement. Case discussed with at bedside. Objective Vital signs: Temperature 97.1 F 10/12/16 07:28 Pulse Rate 60 10/12/16 09:22 Respiratory Rate 16 10/12/16 07:28 Blood Pressure 148/68 H 10/12/16 07:28 Pulse Oximetry 95 10/12/16 07:28 Oxygen Delivery Method Room Air Gen.-awake alert and oriented 3 in no acute distress CV-regular rate and rhythm Lungs-clear to auscultation bilaterally Abdomen-soft, decreased distention, hypoactive bowel sounds, nontender Extremities no edema cyanosis or clubbing Weight: 89.2 kg Results - Labs CBC & Chem 7: 10/12/16 05:02 10/12/16 05:02 Assessment and Plan (1) Diabetes mellitus type 2, uncontrolled, without complications Problem details: Metformin, insulin and incretin therapy Current visit: No Status: Chronic 10/10/16 21:11 IV dextrose and correctional insulin with half dose lantus HS, holding metformin w contrast and NPO (2) Small bowel obstruction Problem details: POA Current visit: Yes Status: Acute ng tube has been placed, she's had about 400 cc out. i'm concerned that this may be a surgical issue, hopefully this can be managed conservatively with her complicated history. Dr Anna Cantu' has been contacted by the emergency room for consultation. she is having severe pain, and a lot of iv every 2 hours as needed for the moment but more may be necessary. nothing by mouth, iv fluids with dextrose and correctional insulin for some caloric intake. Check lactate level 10/10/16 21:09 10/10/16 21:10 (3) Fibromyalgia Current visit: Yes Status: Acute 10/10/16 21:12 she said that opiates don't help her, she has not discussed this month with her primary care physician dealing with diabetes more. she denies ever trying gabapentin or other meds (4) History of migraine headaches Current visit: Yes Status: Acute (5) Asthma, mild persistent Current visit: Yes Status: Acute 10/10/16 21:13 PRN albuterol, usually on HS meds PO Assessment and Plan: Clinically improving. Will await surgery's recommendation about discontinuing the NG tube. We'll keep the patient nothing by mouth at this time. Continue IV fluids. Continue to treat conservatively. Sepsis Assessment - Evaluation Sepsis screening result: No Definite Risk Hospital Course Summary Disclaimer: The visit summary below is not to be considered part of the above Progress Note.
--- NOTE | 2016-10-12 23:47 | XRay Report ---
Indication: Evaluate SB transit time for resolution of SBO PROCEDURE: XR small bowel follow through: Encounter: Initial Comparison: KUB from today and CT chest, abdomen and pelvis dated October 10, 2016 Findings: Thin barium contrast was administered via the patient's existing nasogastric tube due to an iodinated contrast allergy. Contrast traverses the small bowel reaching the cecum and right colon between 2 1/2 and 3 1/2 hours after administration. Contrast is seen in the mid transverse colon at 4 hours and 45 minutes after administration. There is a single prominent borderline dilated loop of small bowel in the lower abdomen measuring 3 cm in diameter. Impression: No evidence of acute small bowel obstruction. Essentially normal intestinal transit time of approximately 3 hours. .
[2016-10-13] MEDS: METOCLOPRAMIDE 10mg/2ml INJECTION IVP SCH ×3 (01:41→13:42)
[2016-10-13] MEDS: D5-1/2NS with KCL 20mEq 1,000 ML IV SCH ×3 (01:41→09:59)
[2016-10-13 07:16] VITALS: BP 146/68; RESP 18; TEMP 96.8
[2016-10-13] MEDS: FLEET PHOSPHO - SODA ENEMA 133ml PR SCH (09:02)
[2016-10-13] MEDS: SALINE FLUSH 10ml SYRINGE IVF PRN ×2 (09:09→13:42)
[2016-10-13] MEDS: ENOXAPARIN 40 MG/0.4 ML INJECTION SQ SCH (09:09)
[2016-10-13] MEDS: PANTOPRAZOLE 40 MG INJECTION IVP SCH (09:09)
--- NOTE | 2016-10-13 09:48 | Progress Note ---
DATE OF VISIT 10/12/2016 REASON FOR VISIT Follow bowel obstruction. SUBJECTIVE Rea is feeling better. She feels like her pain has improved to being a mild level today. She denies nausea or vomiting. Yesterday she had a large bowel movement about three hours after her enema. Today, she has had three small bowel movements on different occasions. She has started her Gastrografin small bowel series that was ordered by me when she had had clinical improvement and was complaining that she wanted to have the NG tube removed. The patient had been complaining about her NG tube. I had been contacted last night by the nurse who had said she had had minimal output; and based on my clinical impression from rounds in the afternoon yesterday, I asked the nurse to advance the NG tube 20 cm. OBJECTIVE VITAL SIGNS: Temperature 97.1, pulse 72, blood pressure 163/75, respiratory rate 20, oxygen saturation 98% on room air. GENERAL: The patient is awake and alert, in no acute distress. HEART: Regular rate and rhythm. LUNGS: No labored breathing. ABDOMEN: Soft, obese, minimally tender. NG tube had 400 mL out today and 300 mL out yesterday. IMAGING KUB was personally reviewed by me. It did show the tip of the NG tube in the proximal stomach but the drainage hole was beyond the diaphragm. This was after advancement of 20 cm last evening. Radiology report was reviewed and showed a nonobstructive bowel gas pattern. ASSESSMENT Partial small bowel obstruction secondary to adhesions--improving clinically. PLAN I ordered a small bowel followthrough to determine if her transit time is normal. If transit time is normal, I think her NG tube could be removed and she could be started on a noncarbonated clear liquid diet. If transit time is delayed, then her NG tube should be continued and she will probably need TPN while awaiting resolution of her bowel obstruction. AKHIL
[2016-10-13] MEDS ORDERED: ClonazePAM 0.5 MG TABLET PO SCH (09:57)
[2016-10-13] MEDS ORDERED: Venlaflaxine XR 75 MG CAPSULE (24hr) PO SCH (10:00)
--- NOTE | 2016-10-13 10:22 | Progress Note ---
DATE OF VISIT 10/12/2016 REASON FOR VISIT Reevaluation following small-bowel followthrough. MIGUEL Lucia still denies any abdominal pain of significance. She has had her Gastrografin small-bowel followthrough. IMAGING Small bowel series was personally reviewed by me. I also went and discussed the series with Dr. Mireles of Radiology. There was transition of the contrast through to the transverse colon that appeared to be in the colon by the 3-1/2- hour gay. IMPRESSION 1. Partial small-bowel obstruction--resolved radiographically and clinically. PLAN 1. Discontinue NG tube. 2. Start noncarbonated clear liquid diet sparingly. MTDD
[2016-10-13 10:26] VITALS: PULSE 79
--- NOTE | 2016-10-13 10:38 | Progress Note ---
Subjective: Very anxious. Wants her outpatient anxiety meds restarted. Has had 2 small bowel movements in the past 12 hours. Passing gas. No nausea or vomiting. Tolerating clear liquids. Objective Vital signs: Temperature 96.8 F 10/13/16 07:16 Pulse Rate 79 10/13/16 08:00 Respiratory Rate 18 10/13/16 07:16 Blood Pressure 146/68 H 10/13/16 07:16 Pulse Oximetry 97 10/13/16 07:16 Oxygen Delivery Method Room Air Gen.-awake alert and oriented 3 in no acute distress CV-regular rate and rhythm Lungs-clear to auscultation bilaterally Abdomen-benign Extremities no edema cyanosis or clubbing Weight: 87.6 kg Results - Labs CBC & Chem 7: 10/13/16 04:04 10/13/16 04:04 Assessment and Plan (1) Small bowel obstruction Problem details: POA Current visit: Yes Status: Acute Resolved on radiological imaging. We much improved. Will advance diet as tolerated. Encourage ambulation. (2) Diabetes mellitus type 2, uncontrolled, without complications Problem details: Metformin, insulin and incretin therapy Current visit: No Status: Chronic (3) Fibromyalgia Current visit: Yes Status: Acute (4) History of migraine headaches Current visit: Yes Status: Acute (5) Asthma, mild persistent Current visit: Yes Status: Acute Sepsis Assessment - Evaluation Sepsis screening result: No Definite Risk Hospital Course Summary Disclaimer: The visit summary below is not to be considered part of the above Progress Note.
[2016-10-13 11:14] VITALS: O2SAT 97
[2016-10-13] MEDS: INSULIN ASPART 100unit/ml INJECTION SQ PRN (11:36)
--- NOTE | 2016-10-13 15:04 | Discharge Summary ---
Discharge Information Date of admission: 10/10/16 18:22 Anticipated date of discharge: 10/13/16 Attending Physician: Huy Lugo MD Primary care physician: Jeanna Osorio MD Consults: 10/10/16 20:00 [Physician Consult] [CONS] Routine Consulting Provider: Trae Bruno Reason For Exam: SBO Ordering Provider has Notified Head Of Mobile: Yes Comment: ED notified 10/10/16 20:54 Dietary Consult [CONS] Routine Comment: Reason For Exam: 10/10/16 23:17 Case Management Consult [CONS] Routine Reason For Exam: SAFETY IN HER OWN HOME RELATINGTO (SEE NOTE - Discharge Diagnosis (1) Small bowel obstruction Problem Details: POA Status: Resolved (2) Diabetes mellitus type 2, uncontrolled, without complications Problem Details: Metformin, insulin and incretin therapy Status: Chronic (3) Fibromyalgia Status: Chronic (4) History of migraine headaches Status: Chronic (5) Asthma, mild persistent Status: Chronic - Laboratory Labs: 10/13/16 04:04 10/13/16 04:04 History of Present Illness HPI: very pleasant 71-year-old white female presents to the emergency room with 1 week worth of abdominal pain. then mainly on her left side, she denies any epigastric 'stomach pain, this is been associated with bloating, and she's not had a bowel movement in 3 days. she rarely passes flatus, that she woke up actually feeling fine this morning, she ate breakfast, but then around 11;30 for pain became much worse. severe cramping, across her entire abdomen. she vomited once, and then had some dry heaves throughout the day. try to lay down for a couple hours but because the pain became excruciating she came to the hospital. there a kub determined she had a small bowel obstruction, similar to those that she's had the past, she has a complicated intra-abdominal surgical history, this started around 1998 when she had a hysterectomy/BSO, following this she had pancreatitis, she had a cyst that was 'stapled to her stomach', this led to some complications, she later had a cholecystectomy, and following recovery of this has had 2 hernias repaired with mesh (unclear timing to me) and several episodes of SBO. The last open surgery she had to relieve an obstruction was 15 years ago, she has had NG tubes placed to deal with instructions a few times since then, the last one was about 2 years ago. She actually had an attempted gastric bypass surgery for weight loss, this was 5 years ago, but they were unable to complete this because of the previous surgeries etc. these were performed at [facility]. She recently moved from [facility] to the near her grandson and son here in [place] her pain initially was 10 out of 10, as i'm visiting with her she is nauseated and has pain of about 9/10. she is only received 1 dose of 2 mg so far. a verbal report given to me by the daytime hospitalist indicates scan showed a transition point in the left abdominal region around some mesh Objective Vital signs: Temperature 96.8 F 10/13/16 07:16 Pulse Rate 79 10/13/16 08:00 Respiratory Rate 18 10/13/16 07:16 Blood Pressure 146/68 H 10/13/16 07:16 Pulse Oximetry 97 10/13/16 07:16 Oxygen Delivery Method Room Air Gen.-awake alert and oriented 3 in no acute distress CV-regular rate and rhythm Lungs-clear to auscultation bilaterally Abdomen-benign Extremities no edema cyanosis or clubbing Weight: 87.6 kg Hospital Course This is a general summary of the patient's hospital course. For more details refer to the complete medical record. This is 71-year-old female admitted for a small bowel obstruction. She was treated conservatively with NG tube, intravenous Reglan, and enemas. She was seen by general surgery. This is her ninth small bowel obstruction. At time of discharge she is back to her baseline self. She is tolerating solid food. She is passing gas and having bowel movements. She is pain-free. Time spent with patient: 25 - 35 minutes Discharge Plan - Med Rec/Dispo Truven Instructions: Bowel Obstruction (DC) Prescriptions: Continue Insulin Glargine,Hum.rec.anlog [Lantus Solostar] 30 unit SQ HS Empagliflozin [Jardiance] 25 mg PO DAILY Venlafaxine HCl [Venlafaxine HCl ER] 225 mg PO DAILY Cyanocobalamin (B-12) [Vit. B-12] 1,000 mg INJ Q2M Montelukast Sodium [Singulair] 10 mg PO DAILY No Action Metformin HCl 1,000 mg PO BID #0 tab clonazePAM [Clonazepam] 0.5 mg PO BID #0 tab Trazodone HCl 50 mg PO HS #0 tab omeprazole 40 mg capsule,delayed release 40 mg PO DAILY cap Discharge Instructions/Outpatient Orders: Final Provider Discharge Instructions Location: Determined By Patient - Disposition 01 Discharged Home, Self-Care
[2016-10-13] MEDS ORDERED: NEOMYCIN/POLYMYXIN/BACITRACIN OINT PACKET TP ONE (15:18)
--- NOTE | 2016-10-13 19:47 | Progress Note ---
DATE OF VISIT 10/13/2016 REASON FOR VISIT Follow bowel obstruction. SUBJECTIVE Rea is doing well. She continues to have bowel movements following her small- bowel followthrough. She has had three bowel movements in the last 12 hours including one just recently. She has been feeling well and has been tolerating the clears well. She would like to eat. She denies significant pain. OBJECTIVE VITAL SIGNS: Temperature 96.8, pulse 79, blood pressure 146/68, respiratory rate 18. Oxygen saturation 97% on room air. GENERAL: The patient is awake and alert, in no acute distress. HEART: Regular rate and rhythm. LUNGS: No labored breathing. ABDOMEN: Soft, obese, nontender, nondistended. IMPRESSION Partial small bowel obstruction--resolved. PLAN 1. Advance to a consistent carbohydrate diet for lunch. 2. If the patient is dismissed, she does not need any specific followup with me. She was given the office phone number and she can call if she has any concerns. AKHIL
== END 2016-10-13 16:30 | disposition home or self-care (01) | DRG 390 ==
LOC: ED 15:27 → SRG 18:22
PROVIDERS: ADMIT Hospitalist; ATTEND Hospitalist

== ENCOUNTER 2016-12-20 13:26 | Inpatient (IN) ==
--- OUTSIDE RECORDS SUMMARY | 2016-12-20 14:13 | External Medical Summary | Clinical Summary ---
:1945 Author Organization [facility] Address [address] [place] [address] Phone Care Team Providers Name Role Phone Unavailable Primary Care Provider Unavailable Source Comments Some departments are not documenting in the electronic medical record. If you do not see the information that you expected, contact Release of Information in the Health Information Management department at [phone] for further assistance in locating additional records.[facility] Allergies Active Allergy Reactions Severity Noted Date Comments Iodinated Contrast- Oral And Iv Dye RASH Medium 01/24/2015 Mercury (Elemental) RASH Medium 01/24/2015 Penicillins RASH Medium 01/24/2015 Sulfa (Sulfonamide Antibiotics) RASH Medium 01/24/2015 Codeine SEE COMMENTS Low 01/24/2015 hyperactivity Current Medications Prescription Sig. Disp. Refills Start Date End Date Status metFORMIN (GLUCOPHAGE) Take 1,000 mg by Active 1,000 mg tablet mouth twice daily with meals. INSULIN Inject 25 mg into Active GLARGINE,HUM.REC.ANLOG area(s) as directed. (LANTUS SC) LIRAGLUTIDE (VICTOZA Inject 1.8 mL into Active 2-PAULINA SC) area(s) as directed. clonazePAM (KLONOPIN) Take 0.5 mg by mouth Active 0.5 mg tablet twice daily. omeprazole DR(+) Take 20 mg by mouth Active (PRILOSEC) 20 mg capsule daily. venlafaxine XR (EFFEXOR Take 150 mg by mouth Active XR) 150 mg capsule daily. Fluocinolone Acetonide Place 3 Drops in ear 20 mL 2 01/24/2015 Active Oil 0.01 % drop as directed daily as needed (for itching). Active Problems Problem Noted Date Chronic otitis externa of both ears 01/24/2015 Impacted cerumen of left ear 01/24/2015 Sensorineural hearing loss of both ears 01/24/2015 Family History Medical History Relation Name Comments Asthma Daughter Diabetes Father Relation Name Status Comments Daughter Alive Father Mother Social History Tobacco Use Types Packs/Day Years Used Date Former Smoker Smokeless Tobacco: Never Used Alcohol Use Drinks/Week oz/Week Comments No Sex Assigned at Date Recorded Not on file Last Filed Vital Signs Vital Sign Reading Time Taken Blood Pressure 128/83 01/24/2015 10:35 AM CDT Pulse 62 01/24/2015 10:35 AM CDT Temperature - - Respiratory Rate - - Oxygen Saturation - - Inhaled Oxygen Concentration - - Weight 85.8 kg (189 lb 3.2 oz) 01/24/2015 10:35 AM CDT Height 157.5 cm (5' 2") 01/24/2015 10:35 AM CDT Body Mass Index 34.61 01/24/2015 10:35 AM CDT Plan of Treatment Health Maintenance Due Date Last Done Comments PHYSICAL (COMPREHENSIVE) EXAM 08/08/1950 PERTUSSIS VACCINE 08/08/1954 TETANUS VACCINE 08/08/1960 BREAST CANCER SCREENING 1983 COLORECTAL CANCER SCREENING 08/08/1993 SHINGLES VACCINE 2003 OSTEOPOROSIS SCREENING 08/08/2008 PREVNAR/PNEUMOVAX (#1) 08/08/2008 INFLUENZA VACCINE 12/30/2016
[2016-12-20] MEDS ORDERED: FentaNYL 100 MCG/2 ML INJECTION IVP ONE (14:51)
[2016-12-20] MEDS ORDERED: NS 1,000 ML IV ONE (14:51)
[2016-12-20] MEDS ORDERED: ONDANSETRON 4 MG/2 ML INJECTION IVP ONE (14:51)
--- NOTE | 2016-12-20 15:22 | Emergency Department Report ---
Abdominal Pain HPI - General Chief Complaint: Abdominal Pain Stated Complaint: vomitin,pain in abd,( past history bowel obstruc) Time Seen by Provider: 12/20/16 14:06 - History of Present Illness HPI narrative: 71-year-old female presents with abdominal pain. She states she is afraid that she is having another bowel obstruction. She has had several previous SBO. Today she is having nausea and vomiting as well as diarrhea. Has vomited multiple times already. No fever or chills. Abdominal pain is 8 out of 10 when she is cramping, 4 out of 10 at rest. She ate breakfast, but has not had anything to eat since then. Takes daily laxatives to keep her bowels moving. No abdominal trauma or recent injury. - Related Data Home Medications Medication Instructions Recorded Confirmed Metformin HCl 1,000 mg PO BID #0 tab 04/16/16 12/20/16 Trazodone HCl 50 mg PO HS #0 tab 04/16/16 12/20/16 clonazePAM [Clonazepam] 0.5 mg PO BID #0 tab 04/16/16 12/20/16 Cyanocobalamin (B-12) [Vit. B-12] 1,000 mg INJ Q2M 10/10/16 12/20/16 Empagliflozin [Jardiance] 25 mg PO DAILY 10/10/16 12/20/16 Insulin Glargine,Hum.rec.anlog 30 unit SQ HS 10/10/16 12/20/16 [Lantus Solostar] Montelukast Sodium [Singulair] 10 mg PO DAILY 10/10/16 12/20/16 Cetirizine HCl [Zyrtec] 10 mg PO DAILY 12/20/16 12/20/16 FLUoxetine [Prozac] 20 mg PO DAILY 12/20/16 12/20/16 Mupirocin Ointment [Bactroban 1 applic TOP DAILY 12/20/16 12/20/16 Ointmment] Omeprazole 40 mg PO DAILY 12/20/16 12/20/16 Triamcinolone 0.1% Cream 15 G 1 applicatio TOP BID 12/20/16 12/20/16 [Kenalog] Previous Rx's Medication Instructions Recorded Sennosides [Senokot] 2 tab PO BID #100 tablet 12/26/16 Allergies Allergy/AdvReac Type Severity Reaction Status Date / Time mercury (elemental) Allergy Severe "BLOODY Verified 12/20/16 13:45 RASH" codeine Allergy Intermediate DISORIENTED, Verified 12/20/16 13:45 HYPER Penicillins Allergy Intermediate HIVES Verified 12/20/16 13:45 Iodinated Contrast- Oral and Allergy Unknown Verified 12/20/16 14:12 IV Dye Sulfa (Sulfonamide Allergy Unknown Verified 12/20/16 13:45 Antibiotics) morphine AdvReac Intermediate Hallucinati Verified 12/20/16 13:45 ng Review of Systems All systems: reviewed and negative except as stated PFSH Patient Stated Medical History Glaucoma watching for Asthma Yes Diabetes Mellitus Type 2 Yes Gastroesophageal Reflux Yes Disease Hiatal Hernia Yes Obstructive Bowel Yes: 9, bowel surgeries no resection Other GI Yes: barretts esophagus Hx Renal Disease No Shingles Yes: 5 years ago Depression Yes Post Menopausal Yes Clinic Medical History (Last Reviewed 09/18/16 @ 15:36 by Christiano Edwards MD) Multinodular goiter (nontoxic) (Chronic Medical ~2014) Nodules are not palpable. I would not necessarily recommend "routine" sonograms every 6 months. However I need to review the previous sonograms and cytology from the [facility] to make a current recommendation. Diabetes mellitus type 2, uncontrolled, without complications (Chronic Medical ~ 1998) Metformin, insulin and incretin therapy Hyperlipidemia LDL goal <100 (Chronic Medical) Osteoporosis (Chronic Medical) Now on a drug holiday from [place], but has not had a recent DXA scan which would be helpful in following bone density while going untreated. Medical History Updates: ADD. Morbid Obesity (Chronic). Comment: had attempted open gastric bypass in 2009 that was abandoned due to extensive adhesions and scar. Medical management now. ADD. Sacral fracture (Resolved) onset = 04/2016. Comment: S/P sacroplasty. ADD. Fibromyalgia (Chronic). ADD. Asthma (Chronic). ADD. Small bowel obstruction (Chronic). Comment: S/ P exploratory laparotomy 2003 and 2007. Surgery in 2007 was 8-10 hours and was complicated with a wound dehiscence. Multiple other episodes resolved with conservative managment. Surgical History: tailbone repair Family History: Family History (Last Reviewed 09/18/16 @ 15:36 by Christiano Edwards MD) Father Diabetes Cancer of pancreas Paternal Grandmother Cancer Paternal Grandfather Cancer - Social History Smoking status: Never smoker Substance use type: does not use Physical Exam - Limitations Limitations: no limitations - General General appearance: alert, in distress (abdominal pain) - Normal Exams: Head:: Normocephalic without trauma Chest/Respirations:: Clear all cabral, with good airflow, and symmetry bilaterally Cardiovascular:: Regular rate and rhythm, without murmur or gallop, Pulses 2+ all extremities, capillary refill, <2 seconds all extremities Neurological:: Patient is alert, and oriented, cranial nerves, motor/sensory/ cerebellar, exams w/o gross deficits, to observation Psychiatric:: Patient exhibits, appropriate attention, emotion and affect - Abdominal Exam Abdominal exam: Present: distention, tenderness (left and right upper quadrant) , diminished bowel sounds, hypoactive bowel sounds, other (morbidly obese). Absent: guarding, rebound, rigidity Course Vital Signs Temperature 97.1 F 12/20/16 13:45 Pulse Rate 69 12/20/16 13:45 Respiratory Rate 20 12/20/16 13:45 Blood Pressure 195/89 H 12/20/16 13:45 Pulse Oximetry 94 12/20/16 13:45 Temperature 97.1 F 12/20/16 13:45 Pulse Rate 69 12/20/16 13:45 Respiratory Rate 20 12/20/16 13:45 Blood Pressure 195/89 H 12/20/16 13:45 Pulse Oximetry 94 12/20/16 13:45 Abdominal Pain - MDM Narrative Medical decision making narrative: Pt arrived, evaluated and given 1L NS, zofran 4mg iv and fentanyl 50 mcg iv. WBC elevated at 12.2 with L shift, sodium 145. Other labs all reviewed and Lactate 2.2. CT showed chronic v acute SBO with prev CT also showing sbo. Discussed with Hospitalist and pt admitted with SBO , hypernatremia, and elevated lactate. fentanyl dose 50mcg iv repeated x 1. - Differential Diagnosis Differential diagnosis: Likely: abdominal pain, acute appendicitis, diverticulitis, gastroenteritis, small bowel obstruction - Medical Records Attestation: I reviewed the patient's medical records. - Lab Data Attestation: I reviewed the patient's lab results. Result diagrams: 12/25/16 04:13 12/26/16 04:34 - Radiology Data Attestation: I reviewed the patient's radiology results. Disposition Clinical Impression: partial small bowel obstruction, Small bowel obstruction, Hypernatremia, Lactate blood increase Disposition: 02 To OBS [facility] Condition: Stable Time of Disposition: 16:15 - Seen By: physician
--- NOTE | 2016-12-20 16:06 | CT Scan Report ---
Indication: abd pain, hx of bowel obst PROCEDURE: CT abdomen pelvis wo con: Encounter: Initial Comparison: October 10, 2016 Technique: Axial CT images were performed through the abdomen and pelvis without intravenous contrast. Coronal and sagittal two-dimensional reformats. Automated Exposure Control and Iterative Reconstruction dose reducing techniques were utilized. Findings: The lung bases are grossly clear. The unenhanced contours of the liver are unremarkable. Postsurgical changes in the left upper quadrant abdomen and stomach. The gallbladder is surgically absent. The spleen is normal. Fatty replaced pancreas. The adrenal glands are normal. Hyperdense right renal cyst. Kidneys are otherwise negative. No abdominal or pelvic lymphadenopathy. Bladder is unremarkable no free fluid. Colon is decompressed distally. There are dilated fecalized small bowel loops again seen in the central abdomen with a similar configuration to the prior study. Small bowel loops are dilated up to 4 cm in diameter with associated mesenteric edema. The dilated loops are near an area of high attenuation material in the anterior abdomen/omentum. Distal small bowel loops are more normal in caliber. Bone windows are unchanged with prior sacroplasty procedure. Impression: Dilated fecalized small bowel in the central abdomen with a similar appearance to the prior CT again suggesting at least a moderate partial small bowel obstruction. This is in the region of high attenuation material in the omental area. This could represent hernia repair mesh. Retained surgical sponge material could have a similar appearance as a "gossypiboma". However this material is not radiographically apparent on multiple KUB studies making retained surgical sponge unlikely. Recommend correlation with the patient's surgical history. .
[2016-12-20] MEDS ORDERED: FentaNYL 100 MCG/2 ML INJECTION IVP PRN (16:34)
[2016-12-20 17:13] VITALS: BMI 36.2
--- NOTE | 2016-12-20 18:35 | History & Physical Report ---
<Kiara Choudhary V - Last Filed: 12/20/16 18:32> History of Present Illness Date: 12/20/16 Chief complaint: abdominal pain HPI: Patient is a 71-year-old female who was brought to the emergency room today for evaluation of acute abdominal pain. She was found to have an acute bowel obstruction, which has been a chronic condition for patient unfortunately. She reports that abdominal pain started this morning at which time she began having generalized abdominal pain accompanied with nausea and vomiting. Day pain got worse encouraging her to present to the emergency room for acute evaluation. Laboratory studies were obtained. White count was found be slightly elevated at 12.2, hemoglobin 13.8, hematocrit 41.6, platelet count 241, neutrophils 82% with 6% bandemia. Sodium is 145, potassium 4.7, BUN 19, creatinine 0.8, glucose 134, LFTs are normal, alkaline phosphatase elevated at 150, lipase 46, venous lactate 2.2. CT scan of the abdomen did reveal dilated small bowel loops, with moderate partial small bowel obstruction. Given these findings the hospitalist services were contacted and accepted patient for inpatient admission was surgical consultation to Dr. Bruno. Patient is seen on initial examination. She is alert, oriented and appears to be in a [id number] amount of abdominal discomfort. She reports that patient initiated this morning and symptoms are consistent with her past bowel obstructions. States that she has had 10 previous bowel obstructions. [facility] Patient Stated Medical History Type II diabetes. Multinodular goiter (nontoxic) GERD Asthma Migraines Depression. Sleep apnea. Hiatal hernia History of multiple bowel obstructions with abdominal adhesions Hyperlipidemia Osteoporosis Medical History Updates: ADD. Morbid Obesity. Comment: had attempted open gastric bypass in 2009 that was abandoned due to extensive adhesions and scar. Medical management now. ADD. Sacral fracture (Resolved) onset = 04/2016. Comment: S/P sacroplasty. ADD. Fibromyalgia (Chronic). ADD. Asthma (Chronic ). ADD. Small bowel obstruction (Chronic). Comment: S/P exploratory laparotomy 2003 and 2007. Surgery in 2007 was 8-10 hours and was complicated with a wound dehiscence. Multiple other episodes resolved with conservative managment. Surgical History: Sacral fracture 2016 s/p sacroplasty May 2016. Tailbone repair. 1998 [facility]Y /BSO. 2011 attempted gastric bypass, aborted d/t adhesions etc. 2001 open SBO release. 1999ish - cholecystectomy, pancreatic cyst issuestailbone repair Family History: Family History (Last Reviewed 09/18/16 @ 15:36 by Christiano Edwards MD) Father Diabetes Cancer of pancreas Paternal Grandmother Cancer Paternal Grandfather Cancer - Social History Smoking status: Former smoker (quit 21 yrs ago) Substance use type: does not use Alcohol intake frequency: does not drink Household members: spouse Current residence: Apartment/Private Home Social history: Primary care provider, Dr. Jeanna Osorio General surgeon Dr. Bruno Medications Home Medications Medication Instructions Recorded Confirmed Type Metformin HCl 1,000 mg PO BID #0 tab 04/16/16 12/20/16 History Trazodone HCl 50 mg PO HS #0 tab 04/16/16 12/20/16 History clonazePAM [Clonazepam] 0.5 mg PO BID #0 tab 04/16/16 12/20/16 History Cyanocobalamin (B-12) [Vit. B-12] 1,000 mg INJ Q2M 10/10/16 12/20/16 History Empagliflozin [Jardiance] 25 mg PO DAILY 10/10/16 12/20/16 History Insulin Glargine,Hum.rec.anlog 30 unit SQ HS 10/10/16 12/20/16 History [Lantus Solostar] Montelukast Sodium [Singulair] 10 mg PO DAILY 10/10/16 12/20/16 History Cetirizine HCl [Zyrtec] 10 mg PO DAILY 12/20/16 12/20/16 History FLUoxetine [Prozac] 20 mg PO DAILY 12/20/16 12/20/16 History Mupirocin Ointment [Bactroban 1 applic TOP DAILY 12/20/16 12/20/16 History Ointmment] Omeprazole [Omeprazole] 40 mg PO DAILY 12/20/16 12/20/16 History Triamcinolone 0.1% Cream 15 G 1 applicatio TOP BID 12/20/16 12/20/16 History [Kenalog] Allergies Allergy/AdvReac Type Severity Reaction Status Date / Time mercury (elemental) Allergy Severe "BLOODY Verified 12/20/16 13:45 RASH" codeine Allergy Intermediate DISORIENTED, Verified 12/20/16 13:45 HYPER Penicillins Allergy Intermediate HIVES Verified 12/20/16 13:45 Iodinated Contrast- Oral and Allergy Unknown Verified 12/20/16 14:12 IV Dye Sulfa (Sulfonamide Allergy Unknown Verified 12/20/16 13:45 Antibiotics) morphine AdvReac Intermediate Hallucinati Verified 12/20/16 13:45 ng Exam Vital Signs: Temperature 96.9 F 12/20/16 17:14 Pulse Rate 54 L 12/20/16 17:14 Respiratory Rate 16 12/20/16 17:14 Blood Pressure 127/65 12/20/16 17:14 Pulse Oximetry 96 12/20/16 17:14 Height/Weight/BMI: Height 1.57 m Weight 89.8 kg Body Mass Index 36.2 - Constitutional Present: mild distress, well nourished, well developed - Routine HEENT Exam Eye: Present: EOMI, PERRL ENT: Present: mucous membranes moist, dentition normal - Routine Respiratory Exam Present: CTA bilaterally. Absent: wheezes - Routine Cardiovascular Exam Present: RRR, S1, S2. Absent: murmur - Routine Abdominal Exam Present: soft, tenderness (generalized abdominal). Absent: normoactive bowel sounds - Routine Extremities Exam Present: no edema, normal capillary refill - Routine Back/Spine/Pelvis Exam Back/Spine: Present: full ROM - Routine Skin Exam Present: intact, dry, warm - Routine Neurological Exam Present: alert, oriented X3, CN II-XII intact - Routine Psychiatric Exam Present: normal affect Results - Labs CBC & Chem 7: 12/20/16 15:25 12/20/16 15:25 Assessment and Plan (1) Small bowel obstruction Problem details: POA Current visit: No Status: Resolved Assessment and Plan: Impression Small bowel obstruction Hypernatremia Acute abdominal pain with nausea and vomiting Type II diabetes Multinodal goiter Asthma Fibromyalgia Hyperlipidemia History of migraine headaches Plan Admit patient to inpatient status under the care of Dr. Garcia for small bowel obstruction. Consultation placed to Dr. Bruno for further surgical evaluation and treatment. At this point will hold off of on antibiotic treatment, as was discussed with Dr. Bruno. If patient develops increased fever, increased leukocytosis or other evidence of acute sepsis, will reconsider at that time. Repeat Venous lactate at 1930. Patient to be nothing by mouth, will place NG tube to low intermittent suction Will monitor Accu-Cheks carefully, at this time. Hold off on diabetes medication. Given patient's nothing by mouth status. Will continue with fentanyl for pain control, although it is quite short acting it may be difficult to control patient's pain. She states that she does not tolerate any morphine or Dilaudid derivatives. Caused significant hallucinations and her last hospital stay. 1/2 NS at 100 ml/hr for gently hydration given NPO status. Ativan as needed for anxiety or sleep given PO meds are on hold Recheck CBC and CMP tomorrow morning to follow blood counts, renal function and electrolytes. Will discuss further orders and plan of care with attending, Dr. Garcia. At time of discharge medical care will return to primary care provider, Dr. Osorio Hospital Course Summary Disclaimer: The visit summary below is not to be considered part of the above Progress Note. Hospital Course: 12/20/16 Impression Small bowel obstruction Hypernatremia Acute abdominal pain with nausea and vomiting Type II diabetes Multinodal goiter Asthma Fibromyalgia Hyperlipidemia History of migraine headaches Plan Admit patient to inpatient status under the care of Dr. Garcia for small bowel obstruction. Consultation placed to Dr. Bruno for further surgical evaluation and treatment. At this point will hold off of on antibiotic treatment, as was discussed with Dr. Bruno. If patient develops increased fever, increased leukocytosis or other evidence of acute sepsis, will reconsider at that time. Repeat Venous lactate at 1930. Patient to be nothing by mouth, will place NG tube to low intermittent suction Will monitor Accu-Cheks carefully, at this time. Hold off on diabetes medication. Given patient's nothing by mouth status. Will continue with fentanyl for pain control, although it is quite short acting it may be difficult to control patient's pain. She states that she does not tolerate any morphine or Dilaudid derivatives. Caused significant hallucinations and her last hospital stay. 1/2 NS at 100 ml/hr for gently hydration given NPO status. Ativan as needed for anxiety or sleep given PO meds are on hold Recheck CBC and CMP tomorrow morning to follow blood counts, renal function and electrolytes. Will discuss further orders and plan of care with attending, Dr. Garcia. At time of discharge medical care will return to primary care provider, Dr. Osorio <Leela Garcia - Last Filed: 12/20/16 20:28> History of Present Illness Date: 12/20/16 [facility] Patient Stated Medical History Migraine Yes Glaucoma watching for Asthma Yes Pneumonia Yes Sleep Apnea Yes: PAST HX Diabetes Mellitus Type 2 Yes Gastroesophageal Reflux Yes Disease Hiatal Hernia Yes Obstructive Bowel Yes: 9, bowel surgeries no resection Other GI Yes: barretts esophagus Shingles Yes: 5 years ago Depression Yes Post Menopausal Yes Clinic Medical History (Last Reviewed 09/18/16 @ 15:36 by Christiano Edwards MD) Multinodular goiter (nontoxic) (Chronic Medical ~2014) Nodules are not palpable. I would not necessarily recommend "routine" sonograms every 6 months. However I need to review the previous sonograms and cytology from the [facility] to make a current recommendation. Diabetes mellitus type 2, uncontrolled, without complications (Chronic Medical ~ 1998) Metformin, insulin and incretin therapy Hyperlipidemia LDL goal <100 (Chronic Medical) Osteoporosis (Chronic Medical) Now [facility] a drug holiday from [facility], but has not had a recent DXA scan which would be helpful in following bone density while going untreated. Family History: Family History (Last Reviewed 09/18/16 @ 15:36 by Christiano Edwards MD) Father Diabetes Cancer of pancreas Paternal Grandmother Cancer Paternal Grandfather Cancer Exam Vital Signs: Temperature 96.9 F 12/20/16 17:14 Pulse Rate 60 12/20/16 19:00 Respiratory Rate 18 12/20/16 19:00 Blood Pressure 127/65 12/20/16 17:14 Pulse Oximetry 93 12/20/16 19:00 Height/Weight/BMI: Height 1.57 m Weight 89.8 kg Body Mass Index 36.2 Results - Labs CBC & Chem 7: 12/20/16 15:25 12/20/16 15:25 Assessment and Plan (1) Small bowel obstruction Problem details: POA Current visit: No Status: Resolved Assessment and Plan: 12/20/2016-I reviewed this chart, the patient history, and the RAKING MACHINE OPERATOR's/PA's documented findings as above. We discussed and formulated the assessment and plan as above with the additions below.-Dr. Garcia The patient has a history of small bowel obstruction 10. Twice she has required surgery the last time over 10 years ago. She states that she has been taking laxatives every day to try to prevent constipation/obstruction. She states her stools have been loose. Her last stools were this morning. She states she's had some increasing abdominal discomfort for a couple of days. Today around 1245 she developed worsening pain and started vomiting. Vomiting did not stop until she went to the emergency room and received antiemetics. She denies any fevers, chills or sweats. She has received fentanyl IV for pain. She does not tolerate morphine or Dilaudid, both of which cause confusion. She states during her last hospitalization she became very confused, likely secondary to narcotics. She also thinks she might have been withdrawing from her clonazepam. Currently her pain is a 5 on a scale of 1-10. Fentanyl does help the pain but does not last very long per her report. She denies any shortness of breath. She denies any chest pain. She states she has been under a lot of stress at home with her who has dementia. She has history of sleep apnea but states that after she lost 100 pounds, her sleep apnea resolved. On exam the patient is alert and in no acute distress. HEENT reveals sclerae to be anicteric. Oropharynx is moist. Neck is supple. Chest is clear to auscultation. Cardiovascular reveals a regular rate and rhythm. Abdomen is soft , mildly distended, with hypoactive bowel sounds. There is mild tenderness to palpation. Extremities are free of edema. Skin is warm and dry and without rashes. Pertinent lab reveal a sodium of 145. Glucose of 134. Hawkins phosphatase 150. Globulin 3.7. Lactate was 2.2 and on recheck is 1.4. Lipase is normal. White count is mildly elevated at 12.2. Chest 6% bands and 82% neutrophils. Impression Partial small bowel obstruction Multiple abdominal surgeries in the past would make surgery for small bowel obstruction very complicated. Abdominal pain Nausea and vomiting History of severe confusion with morphine and Dilaudid Chronic benzodiazepine use Depression, recently started on Prozac Insomnia. Chronically on trazodone. She states she does not sleep well without her trazodone. Type 2 diabetes mellitus on Lantus Asthma history Plan Nothing by mouth. NG tube was placed. Zofran and/or Reglan as needed for nausea. Fentanyl as needed for pain. We'll give scheduled Ativan to prevent benzodiazepine withdrawal. She will have when necessary Ativan if needed We'll give half dose of Lantus. Monitor Accu-Cheks every 6 hours. Give IV glucose if needed or hypoglycemia. Dr. Bruno has been consulted. I discussed the patient with him, and he will see the patient tomorrow. She is currently stable and does not need to be seen by him this evening. When necessary albuterol for history of asthma. Monitor closely for encephalopathy. Hospital Course Summary Disclaimer: The visit summary below is not to be considered part of the above Progress Note.
[2016-12-20] MEDS: 1/2 NS 1,000 ML IV SCH (18:48)
[2016-12-20] MEDS: FentaNYL 100 MCG/2 ML INJECTION IVP PRN ×2 (18:51→21:15)
[2016-12-20] MEDS ORDERED: DEXTROSE 50% SYRINGE 50ml (1 AMP) IVP PRN (19:49)
[2016-12-20] MEDS: ONDANSETRON 4 MG/2 ML INJECTION IVP PRN (21:17)
[2016-12-20] MEDS ORDERED: PROCHLORPERAZINE 10 MG/2 ML INJECTION IVP PRN (22:10)
[2016-12-20] MEDS ORDERED: KETOROLAC 30 MG/ML INJECTION IVP ONE (22:13)
[2016-12-21] MEDS: 1/2 NS 1,000 ML IV SCH ×2 (03:56→14:24)
[2016-12-21] MEDS: KETOROLAC 15 MG/ML INJECTION IVP PRN ×3 (03:59→17:58)
[2016-12-21] MEDS ORDERED: FentaNYL 100 MCG/2 ML INJECTION IVP PRN (06:30)
[2016-12-21] MEDS ORDERED: KETOROLAC 30 MG/ML INJECTION IVP ONE (06:30)
[2016-12-21] MEDS: ONDANSETRON 4 MG/2 ML INJECTION IVP PRN ×2 (08:09→14:38)
[2016-12-21] MEDS: PANTOPRAZOLE 40 MG INJECTION IVP SCH (08:11)
--- NOTE | 2016-12-21 08:18 | XRay Report ---
Indication: Check NG tube placement PROCEDURE: XR KUB: Encounter: Initial Comparison: CT abdomen and pelvis dated December 20, 2016 Findings: Nasogastric tube tip and side port projecting over the body of the stomach. Bowel gas pattern is nonobstructive and nonspecific radiographically. Prior sacroplasties. Impression: Nasogastric tube tip appears appropriately located. There is a preliminary report by virtual radiologic. .
[2016-12-21] MEDS ORDERED: PNEUMOCOCCAL 23 VACCINE 0.5ml INJECTION IM ONE (09:00)
--- NOTE | 2016-12-21 12:54 | General Surgery Consult Note ---
Consult date: 12/21/16 Attending Physician: Leela Garcia MD [facility] Medical History (Last Reviewed 09/18/16 @ 15:36 by Christiano Edwards MD) Multinodular goiter (nontoxic) (Chronic Medical ~2014) Nodules are not palpable. I would not necessarily recommend "routine" sonograms every 6 months. However I need to review the previous sonograms and cytology from the [facility] to make a current recommendation. Diabetes mellitus type 2, uncontrolled, without complications (Chronic Medical ~ 1998) Metformin, insulin and incretin therapy Hyperlipidemia LDL goal <100 (Chronic Medical) Osteoporosis (Chronic Medical) Now on a drug holiday from [place], but has not had a recent DXA scan which would be helpful in following bone density while going untreated. Medical History Updates: ADD. Morbid Obesity. Comment: had attempted open gastric bypass in 2009 that was abandoned due to extensive adhesions and scar. Medical management now. ADD. Sacral fracture (Resolved) onset = 04/2016. Comment: S/P sacroplasty. ADD. Fibromyalgia (Chronic). ADD. Asthma (Chronic ). ADD. Small bowel obstruction (Chronic). Comment: S/P exploratory laparotomy 2003 and 2007. Surgery in 2007 was 8-10 hours and was complicated with a wound dehiscence. Multiple other episodes resolved with conservative managment. Most recent episode 10/10/16-10/13/16 at [facility] [place]. ADD. Shingles. ADD. Sleep Apnea (Resolved). Comment: Resolved with weight loss. ADD. Anxiety ( Chronic). ADD. Depression (Chronic). ADD. Montoya's Esophagus (Chronic) Surgical History: Sacral fracture 2017 s/p sacroplasty May 2016. Tailbone repair. 1998 MACY /BSO. 2011 attempted gastric bypass, aborted d/t adhesions etc. 2001 open SBO release. 1998ish - cholecystectomy, pancreatic cyst issuestailbone repair Family History: Family History (Last Reviewed 09/18/16 @ 15:36 by Christiano Edwards MD) Father Diabetes Cancer of pancreas Paternal Grandmother Cancer Paternal Grandfather Cancer - Social History Smoking status: Former smoker (quit 21 yrs ago) Alcohol intake: current Alcohol intake frequency: holidays/special occasions only Household members: spouse Current residence: Apartment/Private Home Social history: Primary care provider, Dr. Jeanna Osorio General surgeon Dr. Bruno Has 2 dogs at home. Medications Home Medications Medication Instructions Recorded Confirmed Type Metformin HCl 1,000 mg PO BID #0 tab 04/16/16 12/20/16 History Trazodone HCl 50 mg PO HS #0 tab 04/16/16 12/20/16 History clonazePAM [Clonazepam] 0.5 mg PO BID #0 tab 04/16/16 12/20/16 History Cyanocobalamin (B-12) [Vit. B-12] 1,000 mg INJ Q2M 10/10/16 12/20/16 History Empagliflozin [Jardiance] 25 mg PO DAILY 10/10/16 12/20/16 History Insulin Glargine,Hum.rec.anlog 30 unit SQ HS 10/10/16 12/20/16 History [Lantus Solostar] Montelukast Sodium [Singulair] 10 mg PO DAILY 10/10/16 12/20/16 History Cetirizine HCl [Zyrtec] 10 mg PO DAILY 12/20/16 12/20/16 History FLUoxetine [Prozac] 20 mg PO DAILY 12/20/16 12/20/16 History Mupirocin Ointment [Bactroban 1 applic TOP DAILY 12/20/16 12/20/16 History Ointmment] Omeprazole [Omeprazole] 40 mg PO DAILY 12/20/16 12/20/16 History Triamcinolone 0.1% Cream 15 G 1 applicatio TOP BID 12/20/16 12/20/16 History [Kenalog] Allergies Allergy/AdvReac Type Severity Reaction Status Date / Time mercury (elemental) Allergy Severe "BLOODY Verified 12/20/16 13:45 RASH" codeine Allergy Intermediate DISORIENTED, Verified 12/20/16 13:45 HYPER Penicillins Allergy Intermediate HIVES Verified 12/20/16 13:45 Iodinated Contrast- Oral and Allergy Unknown Verified 12/20/16 14:12 IV Dye Sulfa (Sulfonamide Allergy Unknown Verified 12/20/16 13:45 Antibiotics) morphine AdvReac Intermediate Hallucinati Verified 12/20/16 13:45 ng Review of Systems 10-point ROS: negative except for HPI and the following: - Gastrointestinal Gastrointestinal: Present: nausea, vomiting - Musculoskeletal Musculoskeletal: Present: joint pain (christian hips and elbows) - Psychiatric Psychiatric: Present: anxiety, depression - Endocrine Endocrine: Present: diabetes, thyroid problems (Follows with Dr. Edwards) - Vital Signs Last Vital Signs Temp 98.8 F 12/21/16 12:00 Pulse 54 L 12/21/16 12:00 Resp 16 12/21/16 12:00 BP 145/64 H 12/21/16 12:00 Pulse Ox 93 12/21/16 12:00 - Laboratory Result Diagrams: 12/21/16 04:08 12/21/16 04:08 Hospital Course Summary Disclaimer: The visit summary below is not to be considered part of the above Progress Note. Hospital Course: 12/20/16 Impression Small bowel obstruction Hypernatremia Acute abdominal pain with nausea and vomiting Type II diabetes Multinodal goiter Asthma Fibromyalgia Hyperlipidemia History of migraine headaches Plan Admit patient to inpatient status under the care of Dr. Garcia for small bowel obstruction. Consultation placed to Dr. Bruno for further surgical evaluation and treatment. At this point will hold off of on antibiotic treatment, as was discussed with Dr. Bruno. If patient develops increased fever, increased leukocytosis or other evidence of acute sepsis, will reconsider at that time. Repeat Venous lactate at 1930. Patient to be nothing by mouth, will place NG tube to low intermittent suction Will monitor Accu-Cheks carefully, at this time. Hold off on diabetes medication. Given patient's nothing by mouth status. Will continue with fentanyl for pain control, although it is quite short acting it may be difficult to control patient's pain. She states that she does not tolerate any morphine or Dilaudid derivatives. Caused significant hallucinations and her last hospital stay. 1/2 NS at 100 ml/hr for gently hydration given NPO status. Ativan as needed for anxiety or sleep given PO meds are on hold Recheck CBC and CMP tomorrow morning to follow blood counts, renal function and electrolytes. Will discuss further orders and plan of care with attending, Dr. Garcia. At time of discharge medical care will return to primary care provider, Dr. Osorio
[2016-12-21] MEDS: ACETAMINOPHEN IV 1,000 MG/100 ML VIAL IV PRN ×2 (14:24→18:00)
--- NOTE | 2016-12-21 20:01 | Progress Note ---
Subjective: The patient was seen this morning accompanied by her . She had just received IV Zofran and Ativan and was somnolent but arousable. She states she slept well last night. She has no pain in her abdomen at this time. She had some mild nausea. She has an NG in place. She's had no bowel movement or flatus. She is urinating without difficulties. Objective Vital signs: Temperature 98.8 F 12/21/16 12:00 Pulse Rate 54 L 12/21/16 12:00 Respiratory Rate 16 12/21/16 12:00 Blood Pressure 145/64 H 12/21/16 12:00 Pulse Oximetry 93 12/21/16 12:00 Height/Weight/BMI: Height 1.57 m Weight 90.2 kg Body Mass Index 36.2 Comments: GEN-drowsy but arousable, no acute distress HEENT-oropharynx is moist, MG in place NECK-supple CV-regular rate and rhythm CHEST-clear to auscultation bilaterally ABD-soft, nontender with positive bowel sounds -no Clarke EXT-no edema NEURO-no focal deficits SKIN-warm and dry and without rashes Results - Labs CBC & Chem 7: 12/21/16 04:08 12/21/16 04:08 Microbiology Results: Blood cultures negative after 1 day Assessment and Plan (1) Small bowel obstruction Problem details: POA Current visit: No Status: Resolved Assessment and Plan: 12/21/2016 Impression Partial small bowel obstruction Multiple abdominal surgeries in the past would make surgery for small bowel obstruction very complicated. Abdominal pain -improved this morning Nausea and vomiting -improved with NG tube and Zofran History of severe confusion with morphine and Dilaudid-tolerating when necessary fentanyl Chronic benzodiazepine use-very drowsy with Ativan 0.5 mg IV, will change to 0.25 mg IV twice daily to avoid withdrawal and will have prn available Depression, recently started on Prozac Insomnia. Chronically on trazodone. She states she does not sleep well without her trazodone. Type 2 diabetes mellitus on Lantus-currently on hold and blood sugars well controlled Asthma history-currently well controlled without medication. When necessary albuterol ordered Plan The patient is fairly somnolent this morning. Ativan dose was decreased and frequency was decreased. She has received very little fentanyl as of this morning. Lantus is on hold. We'll give sliding scale insulin if needed. Recheck CBC and basic metabolic profile tomorrow. Patient's was updated. Hospital Course Summary Disclaimer: The visit summary below is not to be considered part of the above Progress Note. Hospital Course: 12/20/16 Impression Small bowel obstruction Hypernatremia Acute abdominal pain with nausea and vomiting Type II diabetes Multinodal goiter Asthma Fibromyalgia Hyperlipidemia History of migraine headaches Plan Admit patient to inpatient status under the care of Dr. Garcia for small bowel obstruction. Consultation placed to Dr. Bruno for further surgical evaluation and treatment. At this point will hold off of on antibiotic treatment, as was discussed with Dr. Bruno. If patient develops increased fever, increased leukocytosis or other evidence of acute sepsis, will reconsider at that time. Repeat Venous lactate at 1930. Patient to be nothing by mouth, will place NG tube to low intermittent suction Will monitor Accu-Cheks carefully, at this time. Hold off on diabetes medication. Given patient's nothing by mouth status. Will continue with fentanyl for pain control, although it is quite short acting it may be difficult to control patient's pain. She states that she does not tolerate any morphine or Dilaudid derivatives. Caused significant hallucinations and her last hospital stay. 1/2 NS at 100 ml/hr for gently hydration given NPO status. Ativan as needed for anxiety or sleep given PO meds are on hold Recheck CBC and CMP tomorrow morning to follow blood counts, renal function and electrolytes. Will discuss further orders and plan of care with attending, Dr. Garcia. At time of discharge medical care will return to primary care provider, Dr. Osorio
[2016-12-21] MEDS ORDERED: ALBUTEROL 2.5mg/3ml (0.083%) NEB AEROSOL PRN (20:03)
[2016-12-21] MEDS ORDERED: INSULIN GLARGINE 100unit/ml INJECTION SQ SCH (21:00)
[2016-12-22] MEDS: 1/2 NS 1,000 ML IV SCH ×2 (01:01→12:10)
[2016-12-22] MEDS: ACETAMINOPHEN IV 1,000 MG/100 ML VIAL IV PRN ×3 (02:57→22:40)
[2016-12-22] MEDS: PANTOPRAZOLE 40 MG INJECTION IVP SCH (09:26)
--- NOTE | 2016-12-22 11:49 | Pharmacy Consult-TPN/PPN ---
Pharmacy Consult-TPN/PPN - Laboratory Information Chemistry Turbidity < 20 (0-20) 12/22/16 03:56 Sodium 140 MEQ/L (134-144) 12/22/16 03:56 Potassium 3.7 MEQ/L (3.6-5) 12/22/16 03:56 Chloride 106 MEQ/L (98-107) 12/22/16 03:56 Carbon Dioxide 20 MEQ/L (22-30) L 12/22/16 03:56 Anion Gap 14 MEQ/L (5-15) 12/22/16 03:56 BUN 17.0 MG/DL (7-17) 12/22/16 03:56 Creatinine 0.8 MG/DL (0.7-1.2) 12/22/16 03:56 GFR Calculation 70 12/22/16 03:56 BUN/Creatinine Ratio 21 RATIO (6-26) 12/22/16 03:56 Glucose 108 MG/DL (65-110) 12/22/16 03:56 Glucometer 99 mg/dL (65-110) 12/22/16 10:32 Calculated Osmolality 272 MOSM/KG (261-280) 12/22/16 03:56 Calcium 8.6 MG/DL (8.4-10.2) 12/22/16 03:56 Phosphorus 3.6 MG/DL (2.5-4.5) 12/22/16 03:56 Magnesium 1.7 MG/DL (1.6-2.3) 12/22/16 03:56 Total Bilirubin 0.50 MG/DL (0.20-1.30) 12/20/16 15:25 Icterus Index < 2 (0-7) 12/22/16 03:56 AST 27 U/L (14-36) 12/20/16 15:25 ALT 34 U/L (9-52) 12/20/16 15:25 Alkaline Phosphatase 150 U/L (38-126) H 12/20/16 15:25 Total Protein 8.1 G/DL (6.3-8.2) 12/20/16 15:25 Albumin 3.6 G/DL (3.5-5.0) 12/22/16 03:56 Globulin 3.7 G/DL (2.4-3.6) H 12/20/16 15:25 Albumin/Globulin Ratio 1.2 RATIO (1.1-2.2) 12/20/16 15:25 Lipase 46 U/L (23-300) 12/20/16 15:25 Plasma Lactate 1.4 MMOL/L (0.6-2.2) 12/20/16 19:50 Specimen Hemolysis < 15 (0-25) 12/22/16 03:56 Intake and Output 12/21/16 12/22/16 12/23/16 06:59 06:59 06:59 Intake Total 913.333 / 0547.118 4271.333 / 2393.333 781.667 / 781.667 Output Total 150 / 150 1550 / 1550 Balance 763.333 / 1763.333 843.333 / 843.333 781.667 / 781.667 Weight 89.8 kg 90.2 kg 89.8 kg Intake: IV 913.333 / 985.620 4588.333 / 2393.333 781.667 / 781.667 1/2 Normal Saline 1,000 913.333 / 073.530 2629.333 / 2193.333 781.667 / 781.667 ml @ 100 mls/hr IV .Q10H [facility] Rx#:[id number] OFIRMEV 1,000 mg In 100 200 / 200 ml @ 400 mls/hr IV Q8H PRN Rx#:[id number] Output: Urine 500 / 500 Emesis 25 / 25 Gastric Drainage 150 / 150 1025 / 1025 Right Nare 150 / 150 1025 / 1025 Other: Urine Appearance Clear Urine Color Yellow Urine Odor Strong Emesis Description Bile # Voids 1 STANDARD PPN: VG is 71yo F with small bowel obstruction. Hx of T2DM. Current electrolytes are OK to start a STANDARD PPN FORMULA: Will run PPN via peripheral site at 75ml/hr, reduce 1/2NS to 37.5ml/hr = gives approx 2700ml per day of fluid [89.8kg x 30ml/kg] Keep Novolog low dose correctional scale PRN order. Blood sugars are currently WNL's. Will order BMP for tomorrow am. Adding Fat Emulsion 20% 500ml, one bag daily to prevent EFAD and boost calories. Gives additional 500ml volume. Will watch I/O balance. Total kcal per day = 1300
[2016-12-22] MEDS: MULTI-VIT INFUSION 10 ML, MULTI-TRACE ELEMENTS 1 ML in PPN - STANDARD FORMULA 2,000 ML IV SCH (13:14)
--- NOTE | 2016-12-22 16:17 | Progress Note ---
Subjective: The patient was seen earlier this morning. She was alert. She stated that she is sleeping okay at night. She states her pain is well controlled. She denies feeling anxious. She denies feeling confused like she did during her last hospitalization. She has mild nausea but no vomiting. She has not passed any flatus or had any bowel movements. She denies any shortness of breath. She denies any other concerns. Objective Vital signs: Temperature 96.5 F L 12/22/16 15:42 Pulse Rate 55 L 12/22/16 15:42 Respiratory Rate 16 12/22/16 15:42 Blood Pressure 119/67 12/22/16 15:42 Pulse Oximetry 97 12/22/16 15:42 Height/Weight/BMI: Height 1.57 m Weight 89.8 kg Body Mass Index 36.2 Comments: The patient is afebrile and vital signs are stable. She continues on room air GEN-alert, oriented, no acute distress HEENT-sclera anicteric, pupils are equal, oropharynx is moist, NG is in place NECK-supple CV-regular rate and rhythm CHEST-clear to auscultation bilaterally ABD-soft, nontender, hypoactive bowel sounds -no Clarke EXT-no edema NEURO-no focal deficits SKIN-warm and dry and without rashes Results - Labs CBC & Chem 7: 12/22/16 03:56 12/22/16 03:56 Microbiology Results: White count is 10.8 down from 14.6. 66% neutrophils. 3% bands Magnesium is 1.7. Phosphorus is normal. Blood sugars are ranging from 98-125 Assessment and Plan (1) Small bowel obstruction Problem details: POA Current visit: No Status: Resolved Assessment and Plan: 12/22/2016 Impression Partial small bowel obstruction Multiple abdominal surgeries in the past would make surgery for small bowel obstruction very complicated. Abdominal pain -improved Nausea and vomiting -improved with NG tube and Zofran History of severe confusion during last hospital stay. This could've been secondary to morphine/Dilaudid which she has not tolerated in the past secondary to encephalopathy and there may have been a component of benzodiazepine withdrawal as well. She is doing well this hospital stay. Chronic benzodiazepine use-very drowsy with Ativan 0.5 mg IV 3 times a day which was started on admission, changed on 12/21/2016 2 to 0.25 mg IV twice daily. The patient is much more alert and awake. No signs of withdrawal. Depression, recently started on Prozac-currently on hold since she is nothing by mouth Insomnia. Chronically on trazodone. She states she does not sleep well without her trazodone, it is doing okay at this time. Type 2 diabetes mellitus on Lantus-currently on hold and blood sugars well controlled Asthma history-currently well controlled without medication. When necessary albuterol ordered Plan The patient is much more alert this morning. She is doing better on a decreased dose of scheduled Ativan. She is on scheduled Ativan to try to prevent benzodiazepine withdrawal which may have contributed to her encephalopathy last hospitalization. Pain control is good with Toradol and fentanyl as needed Lantus is on hold. We'll give sliding scale insulin if needed. PPN started today for nutrition. If blood sugars are elevated, may need to restart Lantus versus continue sliding scale insulin Recheck CBC and basic metabolic profile tomorrow. Discussed today with Dr. Zapien and patient's nurse. Hospital Course Summary Disclaimer: The visit summary below is not to be considered part of the above Progress Note. Hospital Course: 12/20/16 Impression Small bowel obstruction Hypernatremia Acute abdominal pain with nausea and vomiting Type II diabetes Multinodal goiter Asthma Fibromyalgia Hyperlipidemia History of migraine headaches Plan Admit patient to inpatient status under the care of Dr. Garcia for small bowel obstruction. Consultation placed to Dr. Bruno for further surgical evaluation and treatment. At this point will hold off of on antibiotic treatment, as was discussed with Dr. Bruno. If patient develops increased fever, increased leukocytosis or other evidence of acute sepsis, will reconsider at that time. Repeat Venous lactate at 1930. Patient to be nothing by mouth, will place NG tube to low intermittent suction Will monitor Accu-Cheks carefully, at this time. Hold off on diabetes medication. Given patient's nothing by mouth status. Will continue with fentanyl for pain control, although it is quite short acting it may be difficult to control patient's pain. She states that she does not tolerate any morphine or Dilaudid derivatives. Caused significant hallucinations and her last hospital stay. 1/2 NS at 100 ml/hr for gently hydration given NPO status. Ativan as needed for anxiety or sleep given PO meds are on hold Recheck CBC and CMP tomorrow morning to follow blood counts, renal function and electrolytes. Will discuss further orders and plan of care with attending, Dr. Garcia. At time of discharge medical care will return to primary care provider, Dr. Osorio 12/21/2016 Impression Partial small bowel obstruction Multiple abdominal surgeries in the past would make surgery for small bowel obstruction very complicated. Abdominal pain -improved this morning Nausea and vomiting -improved with NG tube and Zofran History of severe confusion with morphine and Dilaudid-tolerating when necessary fentanyl Chronic benzodiazepine use-very drowsy with Ativan 0.5 mg IV, will change to 0.25 mg IV twice daily to avoid withdrawal and will have prn available Depression, recently started on Prozac Insomnia. Chronically on trazodone. She states she does not sleep well without her trazodone. Type 2 diabetes mellitus on Lantus-currently on hold and blood sugars well controlled Asthma history-currently well controlled without medication. When necessary albuterol ordered Plan The patient is fairly somnolent this morning. Ativan dose was decreased and frequency was decreased. She has received very little fentanyl as of this morning. Lantus is on hold. We'll give sliding scale insulin if needed. Recheck CBC and basic metabolic profile tomorrow. Patient's was updated.
[2016-12-22] MEDS: FAT EMULSION 20% 500 ML IV SCH (16:19)
--- NOTE | 2016-12-22 20:50 | Progress Note ---
DATE 12/22/2016 HISTORY The patient reports that her abdominal pain and abdominal distention are less since yesterday. She does have a nasogastric tube in place. The patient has not passed any flatus or had a bowel movement since admission to the hospital. She states that she usually has to take a laxative every day to have a bowel movement and has not used any laxatives since she was admitted to the hospital. INTAKE AND OUTPUT The patient had 250 mL of output from the nasogastric tube during the last 8- hour shift. She had 400 mL of output from the nasogastric tube during the 8- hour shift before that. She had 375 mL of output from the nasogastric tube during the 8-hour shift before that. PHYSICAL EXAMINATION VITAL SIGNS: Temperature is 96.6 degrees Fahrenheit oral. Pulse is 63. Respiratory rate is 16. Blood pressure is 140/77. Oxygen saturation is 96% on room air. ABDOMEN: The abdomen is soft. There is some mild diffuse tenderness to palpation throughout the abdomen. There is an old midline vertically oriented abdominal incision scar. The abdomen is somewhat distended. LABORATORY DATA White blood cell count is 10,800 with 3 bands today. Hemoglobin is 13.2. Hematocrit is 39.4. Serum sodium is 140. Serum potassium is 3.7. Serum creatinine is 0.8. IMPRESSION Partial small bowel obstruction. RECOMMENDATION 1. Continue nonoperative treatment of partial small bowel obstruction with bowel rest, intravenous fluid administration, correction of any fluid and electrolyte abnormalities, nutritional support and decompression of the upper gastrointestinal tract with the nasogastric tube. 2. If the patient continues to have clinical improvement, she could be scheduled to undergo small bowel x-ray series on 12/24/2016. [facility]
--- NOTE | 2016-12-22 21:23 | Consultation ---
DATE OF CONSULTATION 12/21/2016 CONSULTING PHYSICIAN Trae Bruno MD REQUESTING PHYSICIAN Dr. Leela Garcia REASON FOR CONSULTATION Small bowel obstruction. IMPRESSION 1. Partial small bowel obstruction likely secondary to dense intraabdominal adhesions. The patient remains a poor operative candidate given that her last operation lasted 8-10 hours. She had another operation that had to be abandoned due to the level of adhesions and the development of intraabdominal hemorrhage during the dissection. 2. Obesity with BMI of 36.4. 3. Type 2 diabetes mellitus - chronic, insulin dependent. 4. Fibromyalgia - chronic. 5. Asthma - chronic. 6. Anxiety - chronic. 7. Depression - chronic. RECOMMENDATIONS 1. Continue NG tube decompression of the GI tract. 2. Continue n.p.o. with bowel rest for now. 3. Rea is going to need up to a very long trial of conservative management potentially even including TPN for nutritional support if her bowel obstruction does not resolve quickly. She is a poor candidate for exploratory laparotomy with lysis of adhesions. 4. If the patient requires surgery due to decompensation I think she will need transfer to a more tertiary center given her prior complicated surgical issues including wound dehiscence with wound VAC management. 5. Dr. Zapien will be covering for the weekend. 6. To try to help with pain control, I will add IV acetaminophen since she desires to avoid narcotics. HISTORY OF PRESENT ILLNESS Rea is a 71-year-old female patient of Dr. Jeanna Osorio who is known to my surgical practice from evaluation for a small bowel obstruction in September 2016. In September, she was hospitalized with a similar appearing CT scan to her current admission. She had two days of bowel rest and then had shown improvement in her appearance of her imaging studies so a small bowel follow-through was done on hospital day #3. The results of the small bowel follow-through was normal so her NG tube was removed and she was started on non-carbonated clears. On hospital day #4, she was advanced to a regular consistency diet and was able to be dismissed after she had had multiple bowel movements. Yesterday morning, Rea awoke with some abdominal pain. Her pain became progressively worse throughout the day until it increased up to 10/10 in severity. She described it as sharp pain. It was constant. She had associated nausea and vomiting and noticed more vomiting than with her last episode. She did have an episode of diarrhea (she is on daily laxatives) yesterday prior to coming to the hospital. She was seen in the emergency department and a repeat CT scan was performed that showed a similar appearance of the small bowel consistent with a partial small bowel obstruction. She was admitted under the hospitalist service. I was contacted by telephone to discuss the situation. I did agree that as long as she seemed like a conservative management candidate, that she could stay at [facility]. Today the patient says that her pain is still not controlled. She rates it 8-9/ 10 in severity but she has been avoiding any narcotics due to her history of hallucinations. She has had a dose of Toradol. Her NG output has totalled about 550 mL since placement. She denies any flatus today. Past Medical History, Past Surgical History, Family History, Social History, Allergies, Medications, Review of Systems: See electronic general surgery consultation note. PHYSICAL EXAMINATION VITAL SIGNS: See electronic general surgery consultation note. GENERAL: The patient is awake and alert. She is in mild distress secondary to pain. She is lying in bed. HEENT: Sclerae clear. Extraocular muscles intact. She does have an NG tube in place and had 150 mL out yesterday and 400 mL out overnight and today. NECK: Supple with a midline trachea. No lymphadenopathy or thyromegaly are noted. HEART: Regular rate and rhythm. LUNGS: Clear to have station bilaterally. ABDOMEN: Soft, obese, tender diffusely but more in the central abdomen. Her lateral abdomen is nontender. There is no guarding or rebound noted. She has a well-healed midline incision that extends from the upper abdomen to the lower abdomen. There is also a small feeding tube incision in the left abdomen. No masses are palpated. EXTREMITIES: No clubbing or cyanosis. There is mild edema. NEUROLOGIC: Cranial nerves II-XII are grossly intact. PSYCHIATRIC: Normal mood and affect. LABORATORY DATA White blood cell count today is 14.6, up from 12.5 yesterday but her mild left shift has resolved. IMAGING CT scan of the abdomen and pelvis and KUB were reviewed by report. See History of Present Illness. KUB showed good position of the NG tube. My plan for nonoperative management was discussed with the patient. I did explain that surgical management would not be possible at [facility]. She was in agreement. Thank you for allowing me to participate in Rea's care again. AKHIL
[2016-12-23] MEDS: INSULIN ASPART 100unit/ml INJECTION SQ PRN (05:57)
--- NOTE | 2016-12-23 08:30 | Pharmacy Consult-TPN/PPN ---
Pharmacy Consult-TPN/PPN - Laboratory Information Chemistry Turbidity < 20 (0-20) 12/23/16 04:00 Sodium 141 MEQ/L (134-144) 12/23/16 04:00 Potassium 3.7 MEQ/L (3.6-5) 12/23/16 04:00 Chloride 108 MEQ/L (98-107) H 12/23/16 04:00 Carbon Dioxide 20 MEQ/L (22-30) L 12/23/16 04:00 Anion Gap 13 MEQ/L (5-15) 12/23/16 04:00 BUN 16.0 MG/DL (7-17) 12/23/16 04:00 Creatinine 0.8 MG/DL (0.7-1.2) 12/23/16 04:00 GFR Calculation 70 12/23/16 04:00 BUN/Creatinine Ratio 20 RATIO (6-26) 12/23/16 04:00 Glucose 134 MG/DL (65-110) H 12/23/16 04:00 Glucometer 156 mg/dL (65-110) 12/23/16 05:48 Calculated Osmolality 274 MOSM/KG (261-280) 12/23/16 04:00 Calcium 8.7 MG/DL (8.4-10.2) 12/23/16 04:00 Phosphorus 3.6 MG/DL (2.5-4.5) 12/22/16 03:56 Magnesium 1.7 MG/DL (1.6-2.3) 12/22/16 03:56 Total Bilirubin 0.50 MG/DL (0.20-1.30) 12/20/16 15:25 Icterus Index < 2 (0-7) 12/23/16 04:00 AST 27 U/L (14-36) 12/20/16 15:25 ALT 34 U/L (9-52) 12/20/16 15:25 Alkaline Phosphatase 150 U/L (38-126) H 12/20/16 15:25 Total Protein 8.1 G/DL (6.3-8.2) 12/20/16 15:25 Albumin 3.6 G/DL (3.5-5.0) 12/22/16 03:56 Globulin 3.7 G/DL (2.4-3.6) H 12/20/16 15:25 Albumin/Globulin Ratio 1.2 RATIO (1.1-2.2) 12/20/16 15:25 Lipase 46 U/L (23-300) 12/20/16 15:25 Plasma Lactate 1.4 MMOL/L (0.6-2.2) 12/20/16 19:50 Specimen Hemolysis < 15 (0-25) 12/23/16 04:00 Intake and Output 12/22/16 12/23/16 12/24/16 06:59 06:59 06:59 Intake Total 2393.333 / 2393.333 1932.084 / 1932.084 Output Total 1550 / 1550 1450 / 1450 50 / 50 Balance 843.333 / 843.333 482.084 / 482.084 -50 / -50 Weight 90.2 kg 89.8 kg Intake: IV 2393.333 / 2393.333 1732.084 / 1732.084 1/2 Normal Saline 1,000 2193.333 / 2193.333 1032.084 / 1032.084 ml @ 37.5 mls/hr IV .Q24H [facility] Rx#:[id number] OFIRMEV 1,000 mg In 100 200 / 200 200 / 200 ml @ 400 mls/hr IV Q8H PRN Rx#:[id number] Intralipid 20% 500 ml @ 500 / 500 125 mls/hr IV 1600 [facility] Rx #:[id number] Oral 200 / 200 Output: Urine 500 / 500 1150 / 1150 50 / 50 Emesis 25 / 25 Gastric Drainage 1025 / 1025 300 / 300 Right Nare 1025 / 1025 300 / 300 Other: Urine Appearance Clear Clear Clear Urine Color Yellow Pale Pale Yellow Yellow Urine Odor Strong Normal Stool Color Brown Emesis Description Bile Size of Bowel Movement Smear # Voids 1 1 1 STANDARD PPN: DAY 2 OF THERAPY VG is 71yo F with small bowel obstruction. Hx of T2DM. Currently running STANDARD PPN FORMULA at 75ml/hr. 1/2NS running at 37.5ml/ hr = gives approx 2700ml per day of fluid [89.8kg x 30ml/kg] Electrolytes all OK this morning. Blood sugars are good. Took one dose of Novolog this am of 1 unit. Will continue the Novolog low correctional scale. Receiving Fat Emulsion 20% 500ml, one bag daily to prevent EFAD and boost calories. Gives additional 500ml volume. I/O balance this am OK. Total kcal per day = 1300 Will continue same regimen. Recheck BMP in am. Thank you.
[2016-12-23] MEDS: PANTOPRAZOLE 40 MG INJECTION IVP SCH (08:51)
[2016-12-23] MEDS: 1/2 NS 1,000 ML IV SCH ×2 (09:13→20:38)
--- NOTE | 2016-12-23 13:03 | Progress Note ---
Subjective: Mrs. Bocanegra was seen with a family member at the bedside. She reported that she is passing gas today and no longer having any nausea. She continues to have mild generalized abdominal discomfort greatest in the lower mid abdomen. She denied dyspnea, chest pain, or fever. She is urinating frequently and has no dysuria. She describes minor lightheadedness with position changes but it is transient. Objective Vital signs: Temperature 96.1 F L 12/23/16 07:00 Pulse Rate 49 L 12/23/16 08:00 Respiratory Rate 18 12/23/16 07:00 Blood Pressure 156/89 H 12/23/16 07:00 Pulse Oximetry 98-RA 12/23/16 07:00 EXAM General-NAD, alert HEENT-EOMI, conjunctiva clear, oropharynx clear other than some dried saliva on her tongue Lungs-respirations nonlabored with good airflow, breath sounds clear Cardiac-regular rhythm, S1-S2 Abd-soft, mildly distended, minor tenderness mid abdomen without guarding, diminished bowel sounds Ext-without edema, midline left upper extremity Neuro-moving all extremities well Psych-flat affect - Height/Weight/BMI: Height 1.57 m Weight 88.9 kg Body Mass Index 36.2 Results - Labs CBC & Chem 7: 12/23/16 04:00 12/23/16 04:00 Assessment and Plan (1) Small bowel obstruction Problem details: POA Current visit: No Status: Resolved DVT Prophylaxis: SCD's GI Prophylaxis: Protonix Resuscitation Status: Full Code Assessment and Plan: 12/22/2016 Impression Partial small bowel obstruction Multiple abdominal surgeries in the past would make surgery for small bowel obstruction very complicated. Abdominal pain-improved Nausea and vomiting-improved with NG tube and Zofran History of severe confusion last hospital stay. Possibly due to morphine/ Dilaudid; possible component of benzodiazepine withdrawal as well. Anxiety with chronic benzodiazepine use Depression, recently started on Prozac Insomnia, chronically on trazodone Type 2 diabetes mellitus on Lantus, metformin, Jardiance chronically Asthma history-currently well controlled without medication Multinodular goiter GERD Plan: Doing well this morning with suggestion of early return of bowel function. Nursing report a smear of stool overnight. Discussed with Dr. Zapien-proceed with small bowel follow-through in the morning. Remains nothing by mouth with IV fluids and PPN for nutritional support. Alert, tolerating reduced dose of lorazepam without excessive sedation. Excess sedation present with Ativan 0.5 mg IV 3 times a day which was started on admission, changed on 12/21/2016 to 0.25 mg IV twice daily. No indication of benzodiazepine withdrawal or encephalopathy at present. Pain control is good with Toradol-last dose 12/21; has fentanyl available but has not used it since 12/20. Blood sugars remain well controlled ranging from 98-156 yesterday and today, required single shot of corrective insulin early this morning. Lantus is on hold. Sliding scale insulin if needed. PPN started yesterday for nutrition. Increased ambulation encouraged. CODE STATUS the discussed for clarification-full code. Hospital Course Summary Disclaimer: The visit summary below is not to be considered part of the above Progress Note. Hospital Course: 12/20/16 Impression Small bowel obstruction Hypernatremia Acute abdominal pain with nausea and vomiting Type II diabetes Multinodal goiter Asthma Fibromyalgia Hyperlipidemia History of migraine headaches Plan Admit patient to inpatient status under the care of Dr. Garcia for small bowel obstruction. Consultation placed to Dr. Bruno for further surgical evaluation and treatment. At this point will hold off of on antibiotic treatment, as was discussed with Dr. Bruno. If patient develops increased fever, increased leukocytosis or other evidence of acute sepsis, will reconsider at that time. Repeat Venous lactate at 1930. Patient to be nothing by mouth, will place NG tube to low intermittent suction Will monitor Accu-Cheks carefully, at this time. Hold off on diabetes medication. Given patient's nothing by mouth status. Will continue with fentanyl for pain control, although it is quite short acting it may be difficult to control patient's pain. She states that she does not tolerate any morphine or Dilaudid derivatives. Caused significant hallucinations and her last hospital stay. 1/2 NS at 100 ml/hr for gently hydration given NPO status. Ativan as needed for anxiety or sleep given PO meds are on hold Recheck CBC and CMP tomorrow morning to follow blood counts, renal function and electrolytes. Will discuss further orders and plan of care with attending, Dr. Garcia. At time of discharge medical care will return to primary care provider, Dr. Osorio 12/21/2016 Impression Partial small bowel obstruction Multiple abdominal surgeries in the past would make surgery for small bowel obstruction very complicated. Abdominal pain -improved this morning Nausea and vomiting -improved with NG tube and Zofran History of severe confusion with morphine and Dilaudid-tolerating when necessary fentanyl Chronic benzodiazepine use-very drowsy with Ativan 0.5 mg IV, will change to 0.25 mg IV twice daily to avoid withdrawal and will have prn available Depression, recently started on Prozac Insomnia. Chronically on trazodone. She states she does not sleep well without her trazodone. Type 2 diabetes mellitus on Lantus-currently on hold and blood sugars well controlled Asthma history-currently well controlled without medication. When necessary albuterol ordered Plan The patient is fairly somnolent this morning. Ativan dose was decreased and frequency was decreased. She has received very little fentanyl as of this morning. Lantus is on hold. We'll give sliding scale insulin if needed. Recheck CBC and basic metabolic profile tomorrow. Patient's was updated. 12/23/16 13:18 Doing well this morning with suggestion of early return of bowel function. Nursing report a smear of stool overnight. Discussed with Dr. Zapien-we'll proceed with small bowel follow-through in the morning. Remains nothing by mouth with IV fluids and PPN for nutritional support. Alert, tolerating reduced dose of lorazepam without excessive sedation. Excess sedation present with Ativan 0.5 mg IV 3 times a day which was started on admission, changed on 12/21/2016 to 0.25 mg IV twice daily. No indication of benzodiazepine withdrawal or encephalopathy at present. Pain control is good with Toradol-last dose 12/21; has fentanyl available but has not used it since 12/20. Blood sugars remain well controlled ranging from 98-156 yesterday and today, required single shot of corrective insulin early this morning. Lantus is on hold. Sliding scale insulin if needed. PPN started yesterday for nutrition. Increased ambulation encouraged. Full CODE STATUS confirmed with patient.
[2016-12-23] MEDS: MULTI-VIT INFUSION 10 ML, MULTI-TRACE ELEMENTS 1 ML in PPN - STANDARD FORMULA 2,000 ML IV SCH (14:30)
[2016-12-23] MEDS: ACETAMINOPHEN IV 1,000 MG/100 ML VIAL IV PRN (14:48)
[2016-12-23] MEDS: FAT EMULSION 20% 500 ML IV SCH (16:32)
[2016-12-24] MEDS: ACETAMINOPHEN IV 1,000 MG/100 ML VIAL IV PRN (00:06)
[2016-12-24] MEDS: INSULIN ASPART 100unit/ml INJECTION SQ PRN ×3 (06:10→20:21)
--- NOTE | 2016-12-24 08:33 | Progress Note ---
DATE 12/23/2016 HISTORY The patient states she had a small bowel movement yesterday. The patient is passing flatus today. She states that her abdominal pain and distention are less each day. She is not having any vomiting. She does have a nasogastric tube in place. She is receiving PPN for nutritional support. INTAKE AND OUTPUT The patient is having 100-200 mL of nasogastric tube output each shift. PHYSICAL EXAMINATION VITAL SIGNS: Temperature is 96.1 degrees Fahrenheit oral. Pulse is 51. Respiratory rate is 18. Blood pressure is 156/89. Oxygen saturation is 98% on room air. ABDOMEN: The abdomen is mildly diffusely tender. The patient states the tenderness is unchanged since yesterday. There is some mild abdominal distention. The abdomen is soft.. LABORATORY DATA White blood cell count is 8400 with no bands today. Hemoglobin is 12.6. Hematocrit is 37.3. Serum sodium is 141. Serum potassium is 3.7. Serum creatinine 0.8. IMPRESSION Partial small bowel obstruction which appears to be responding to nonoperative treatment. PLAN 1. Continue nonoperative treatment of partial small bowel obstruction with bowel rest, intravenous fluid administration, correction of fluid and electrolyte abnormalities, nutritional support and decompression of the upper gastrointestinal tract with a nasogastric tube. 2. The patient could be scheduled to undergo a small bowel x-ray series tomorrow. [facility]
--- NOTE | 2016-12-24 09:02 | Pharmacy Consult-TPN/PPN ---
Pharmacy Consult-TPN/PPN - Laboratory Information Chemistry Turbidity < 20 (0-20) 12/24/16 04:26 Sodium 143 MEQ/L (134-144) 12/24/16 04:26 Potassium 3.5 MEQ/L (3.6-5) L 12/24/16 04:26 Chloride 108 MEQ/L (98-107) H 12/24/16 04:26 Carbon Dioxide 22 MEQ/L (22-30) 12/24/16 04:26 Anion Gap 13 MEQ/L (5-15) 12/24/16 04:26 BUN 16.0 MG/DL (7-17) 12/24/16 04:26 Creatinine 0.7 MG/DL (0.7-1.2) 12/24/16 04:26 GFR Calculation 82 12/24/16 04:26 BUN/Creatinine Ratio 23 RATIO (6-26) 12/24/16 04:26 Glucose 160 MG/DL (65-110) H 12/24/16 04:26 Glucometer 171 mg/dL (65-110) 12/24/16 06:04 Calculated Osmolality 279 MOSM/KG (261-280) 12/24/16 04:26 Calcium 9.3 MG/DL (8.4-10.2) 12/24/16 04:26 Phosphorus 3.5 MG/DL (2.5-4.5) 12/24/16 04:26 Magnesium 1.9 MG/DL (1.6-2.3) 12/24/16 04:26 Total Bilirubin 0.50 MG/DL (0.20-1.30) 12/20/16 15:25 Icterus Index < 2 (0-7) 12/24/16 04:26 AST 27 U/L (14-36) 12/20/16 15:25 ALT 34 U/L (9-52) 12/20/16 15:25 Alkaline Phosphatase 150 U/L (38-126) H 12/20/16 15:25 Total Protein 8.1 G/DL (6.3-8.2) 12/20/16 15:25 Albumin 3.8 G/DL (3.5-5.0) 12/24/16 04:26 Globulin 3.7 G/DL (2.4-3.6) H 12/20/16 15:25 Albumin/Globulin Ratio 1.2 RATIO (1.1-2.2) 12/20/16 15:25 Lipase 46 U/L (23-300) 12/20/16 15:25 Plasma Lactate 1.4 MMOL/L (0.6-2.2) 12/20/16 19:50 Specimen Hemolysis < 15 (0-25) 12/24/16 04:26 Intake and Output 12/23/16 12/24/16 12/25/16 06:59 06:59 06:59 Intake Total 1932.084 / 4972.098 3191.250 / 4641.250 Output Total 1450 / 1450 2950 / 2950 Balance 482.084 / 070.729 3891.250 / 1691.250 Weight 89.8 kg 88.9 kg 88.5 kg Intake: IV 1732.084 / 4647.582 1395.250 / 4641.250 1/2 Normal Saline 1,000 1032.084 / 1032.084 951.250 / 951.250 ml @ 37.5 mls/hr IV .Q24H VIVIANA Rx#:[id number] OFIRMEV 1,000 mg In 100 200 / 200 200 / 200 ml @ 400 mls/hr IV Q8H PRN Rx#:[id number] Intralipid 20% 500 ml @ 500 / 500 500 / 500 125 mls/hr IV 1600 VIVIANA Rx #:[id number] Infuvite Adult 10 ml 2990 / 2990 Multi-Trace Elements 1 ml In Ppn - Standard Formula 2,000 ml @ 75 mls /hr IV .Q24H VIVIANA Rx#: [id number] Oral 200 / 200 Output: Urine 1150 / 1150 2550 / 2550 Gastric Drainage 300 / 300 400 / 400 Right Nare 300 / 300 400 / 400 Other: Urine Appearance Clear Clear Clear Urine Color Pale Bright Yellow Yellow Yellow Urine Odor Normal Normal Normal Stool Color Brown Size of Bowel Movement Smear # Voids 1 1 1 # Incontinent Voids 1 - Consult Information Lydemond WNL. Will continue standard PPN at 75 mls/hr. Thank you.
[2016-12-24] MEDS: 1/2 NS 1,000 ML IV SCH ×2 (10:19→23:03)
[2016-12-24] MEDS: PANTOPRAZOLE 40 MG INJECTION IVP SCH (10:19)
[2016-12-24] MEDS ORDERED: BISACODYL 10 MG SUPPOSITORY RECTALLY ONE (10:25)
--- NOTE | 2016-12-24 14:01 | XRay Report ---
Indication:bowel obstruction Procedure:XR small bowel follow through Comparison: Small bowel follow-through on October 12, 2016. SMALL BOWEL FOLLOW-THROUGH: Findings: Thin barium contrast was administered through the patient's existing nasogastric tube. No iodinated contrast was used during this study due to the patient's iodinated contrast allergy. Contrast traverses the small bowel and into the cecum within 60 minutes, which is slightly faster than the comparison study. There is no evidence of an obstruction. Impression: No evidence of a small bowel obstruction. Normal transit time of approximately 60 minutes, which is slightly more rapid than during the comparison study. .
--- NOTE | 2016-12-24 14:21 | Progress Note ---
<BruceDelphine D - Last Filed: 12/24/16 14:18> Subjective: Rea was seen after the barium SBFT (barium was used b/c of contrast allergy). She actually just passed the barium. She has occasional sharp lower abdominal pain, but the pains are becoming less and less frequent. She reports that after a bowel obstruction, it takes a few days for the pain to completely subside. The NGT is very irritating - she was already dealing with an infection in her nose and ears, and has started using her mupirocin ointment in her nose again. She aches all over from her fibromyalgia. She has felt a little SOA and feels like her asthma is flaring up slightly. No chest pain or palpitations. Objective Vital signs: Temperature 96.8 F 12/24/16 08:00 Pulse Rate 52 L 12/24/16 08:00 Respiratory Rate 18 12/24/16 08:00 Blood Pressure 178/71 H 12/24/16 08:00 Pulse Oximetry 97 12/24/16 08:00 Height/Weight/BMI: Height 1.57 m Weight 88.5 kg Body Mass Index 36.2 - Constitutional Present: no acute distress, well nourished, well developed - Routine HEENT Exam ENT: Present: oropharynx clear. Absent: nares patent (NGT to left nare) - Routine Respiratory Exam Present: CTA bilaterally - Routine Cardiovascular Exam Present: RRR, S1, S2 - Routine Abdominal Exam Present: tenderness (mild lower abdominal tenderness without guarding). Absent : normoactive bowel sounds (hypoactive) - Routine Extremities Exam Present: no edema, pulses intact - Routine Musculoskeletal Exam Musculoskeletal: Present: moving extremities well - Routine Skin Exam Present: intact, dry, warm - Routine Neurological Exam Present: alert, oriented X3, normal speech - Routine Psychiatric Exam Present: normal affect, normal thought process, cooperative Results - Labs CBC & Chem 7: 12/23/16 04:00 12/24/16 04:26 Assessment and Plan (1) Small bowel obstruction Problem details: POA Current visit: No Status: Resolved GI Prophylaxis: Protonix Resuscitation Status: Full Code Assessment and Plan: 12/22/2016 Impression Partial small bowel obstruction Multiple abdominal surgeries in the past would make surgery for small bowel obstruction very complicated. Abdominal pain-improved Nausea and vomiting-improved with NG tube and Zofran History of severe confusion last hospital stay. Possibly due to morphine/ Dilaudid; possible component of benzodiazepine withdrawal as well. Anxiety with chronic benzodiazepine use Depression, recently started on Prozac Insomnia, chronically on trazodone Type 2 diabetes mellitus on Lantus, metformin, Jardiance chronically Asthma history-currently well controlled without medication Multinodular goiter GERD Plan: SBFT showed no evidence of obstruction with a normal transit time of 60 min. NGT had 25 mL output from 0600 until nearly lunchtime. Remove NGT per Dr. Kapoor. Diet advanced to ice chips. K slightly low @ 3.5 - she is on PPN and suspect we can DC PPN after current bag has finished infusing. Repeat labs in am. Hospital Course Summary Disclaimer: The visit summary below is not to be considered part of the above Progress Note. Hospital Course: 12/20/16 Impression Small bowel obstruction Hypernatremia Acute abdominal pain with nausea and vomiting Type II diabetes Multinodal goiter Asthma Fibromyalgia Hyperlipidemia History of migraine headaches Plan Admit patient to inpatient status under the care of Dr. Garcia for small bowel obstruction. Consultation placed to Dr. Bruno for further surgical evaluation and treatment. At this point will hold off of on antibiotic treatment, as was discussed with Dr. Bruno. If patient develops increased fever, increased leukocytosis or other evidence of acute sepsis, will reconsider at that time. Repeat Venous lactate at 1930. Patient to be nothing by mouth, will place NG tube to low intermittent suction Will monitor Accu-Cheks carefully, at this time. Hold off on diabetes medication. Given patient's nothing by mouth status. Will continue with fentanyl for pain control, although it is quite short acting it may be difficult to control patient's pain. She states that she does not tolerate any morphine or Dilaudid derivatives. Caused significant hallucinations and her last hospital stay. 1/2 NS at 100 ml/hr for gently hydration given NPO status. Ativan as needed for anxiety or sleep given PO meds are on hold Recheck CBC and CMP tomorrow morning to follow blood counts, renal function and electrolytes. Will discuss further orders and plan of care with attending, Dr. Garcia. At time of discharge medical care will return to primary care provider, Dr. Osorio 12/21/2016 Impression Partial small bowel obstruction Multiple abdominal surgeries in the past would make surgery for small bowel obstruction very complicated. Abdominal pain -improved this morning Nausea and vomiting -improved with NG tube and Zofran History of severe confusion with morphine and Dilaudid-tolerating when necessary fentanyl Chronic benzodiazepine use-very drowsy with Ativan 0.5 mg IV, will change to 0.25 mg IV twice daily to avoid withdrawal and will have prn available Depression, recently started on Prozac Insomnia. Chronically on trazodone. She states she does not sleep well without her trazodone. Type 2 diabetes mellitus on Lantus-currently on hold and blood sugars well controlled Asthma history-currently well controlled without medication. When necessary albuterol ordered Plan The patient is fairly somnolent this morning. Ativan dose was decreased and frequency was decreased. She has received very little fentanyl as of this morning. Lantus is on hold. We'll give sliding scale insulin if needed. Recheck CBC and basic metabolic profile tomorrow. Patient's was updated. 12/23/16 13:18 Doing well this morning with suggestion of early return of bowel function. Nursing report a smear of stool overnight. Discussed with Dr. Zapien-we'll proceed with small bowel follow-through in the morning. Remains nothing by mouth with IV fluids and PPN for nutritional support. Alert, tolerating reduced dose of lorazepam without excessive sedation. Excess sedation present with Ativan 0.5 mg IV 3 times a day which was started on admission, changed on 12/21/2016 to 0.25 mg IV twice daily. No indication of benzodiazepine withdrawal or encephalopathy at present. Pain control is good with Toradol-last dose 12/21; has fentanyl available but has not used it since 12/20. Blood sugars remain well controlled ranging from 98-156 yesterday and today, required single shot of corrective insulin early this morning. Lantus is on hold. Sliding scale insulin if needed. PPN started yesterday for nutrition. Increased ambulation encouraged. Full CODE STATUS confirmed with patient. 12/24/16 14:30 SBFT showed no evidence of obstruction with a normal transit time of 60 min. NGT had 25 mL output from 0600 until nearly lunchtime. Remove NGT per Dr. Kapoor. Diet advanced to ice chips. K slightly low @ 3.5 - she is on PPN and suspect we can DC PPN after current bag has finished infusing. Repeat labs in am. <Jaylene Bragg - Last Filed: 12/24/16 16:08> Objective Vital signs: Temperature 97.0 F 12/24/16 15:55 Pulse Rate 59 L 12/24/16 15:55 Respiratory Rate 16 12/24/16 15:55 Blood Pressure 147/80 H 12/24/16 15:55 Pulse Oximetry 99 12/24/16 15:55 Height/Weight/BMI: Height 1.57 m Weight 88.5 kg Body Mass Index 36.2 Results - Labs CBC & Chem 7: 12/23/16 04:00 12/24/16 04:26 Assessment and Plan (1) Small bowel obstruction Problem details: POA Current visit: No Status: Resolved Assessment and Plan: I have independently evaluated and examined this patient. I reviewed the chart, the patient's history, and the SKIP HOIST OPERATOR/PA's documented findings as above. We discussed and formulated the assessment and plan as above with additions as below: Mrs. Bocanegra reports that she continues to pass gas but has not had any stool pass as of this morning. Small bowel follow-through study was completed after 1 hour when contrast reached the colon. She reports ongoing episodic sharp cramping pain in the abdomen but no nausea. The patient is alert and in no distress when seen Respirations nonlabored with clear breath sounds Abdomen is soft with mild generalized tenderness but no guarding. Bowel sounds are active. Small bowel follow-through study reviewed by myself-contrast throughout small bowel and into colon at 60 minutes; discussed with Dr. Bruno. NG tube clamped, noncarbonated clear liquids initiated and patient given a dose of lactulose to stimulate bowel function. MiraLAX initiated although patient indicates she has not tolerated fiber supplement in the past. May require switching to Senokot. Discontinue IV nutritional support. Begin resuming home medications as tolerates. Anticipate removal of NG if patient tolerates initial clear liquids. Hospital Course Summary Disclaimer: The visit summary below is not to be considered part of the above Progress Note.
[2016-12-24] MEDS ORDERED: LACTULOSE 20 GM/30 ML ORAL LIQUID PO ONE (15:27)
[2016-12-24] MEDS: MULTI-VIT INFUSION 10 ML, MULTI-TRACE ELEMENTS 1 ML in PPN - STANDARD FORMULA 2,000 ML IV SCH (16:08)
[2016-12-24] MEDS: FAT EMULSION 20% 500 ML IV SCH (16:33)
[2016-12-24] MEDS: MONTELUKAST 10 MG TABLET PO SCH (19:13)
[2016-12-24] MEDS: TRAZODONE 50 MG TABLET PO SCH (22:13)
[2016-12-24] MEDS: ClonazePAM 0.5 MG TABLET PO SCH (22:14)
[2016-12-24] MEDS: POLYETHYL GLYCOL 3350 17gm PACKET PO SCH (22:14)
[2016-12-25] MEDS: INSULIN ASPART 100unit/ml INJECTION SQ PRN ×4 (05:58→21:12)
[2016-12-25] MEDS: POLYETHYL GLYCOL 3350 17gm PACKET PO SCH ×2 (09:34→21:12)
[2016-12-25] MEDS: ClonazePAM 0.5 MG TABLET PO SCH ×2 (09:34→21:07)
[2016-12-25] MEDS: PANTOPRAZOLE 40 MG INJECTION IVP SCH (09:34)
[2016-12-25] MEDS: MONTELUKAST 10 MG TABLET PO SCH (09:35)
[2016-12-25] MEDS: FLUoxetine 20 MG CAPSULE PO SCH (09:35)
[2016-12-25] MEDS: CETIRIZINE 10 MG TABLET PO SCH (09:35)
[2016-12-25] MEDS: 1/2 NS 1,000 ML IV SCH (09:37)
--- NOTE | 2016-12-25 10:39 | Progress Note ---
DATE OF VISIT 12/24/2016 REASON FOR VISIT Follow small bowel obstruction. SUBJECTIVE Rea had her small bowel follow-through with barium earlier today. She has had a bowel movement since the small bowel series. Her transit time was normal at 60 minutes. She does complain of some abdominal pain and feels like her bowels are continuing to work. She has tolerated a noncarbonated clear liquid diet so far with her NG tube clamped for the last 3 hours. OBJECTIVE VITAL SIGNS: Temperature 97.0, pulse 59, blood pressure 147/80, respiratory rate 16, oxygen saturation 99% on room air. GENERAL: The patient is awake, alert, in no acute distress. HEENT: Her NG tube is clamped. HEART: Regular rate and rhythm. LUNGS: Clear to auscultation bilaterally. ABDOMEN: Soft, minimally tender, obese, no guarding or rebound. ASSESSMENT Partial small bowel obstruction secondary to adhesions - improving, resolved radiographically. PLAN 1. Continue noncarbonated clear liquid diet for the rest of the evening. 2. Continue laxatives due to barium from her imaging study. 3. If her gastric residual is less than 150 ml at 8:00 p.m. I think her NG tube could be discontinued. Otherwise it should remain clamped. 4. Recheck progress tomorrow and, if doing well and having more bowel function , then her diet could be advanced. FRANCOD
--- NOTE | 2016-12-25 15:24 | Progress Note ---
Subjective: Rea reports that she feels great today. She had multiple bowel movements early this morning and denied nausea or vomiting. She's tolerated clear liquids and NG tube was removed yesterday evening. She denied dyspnea, lightheadedness, or dysuria. She is voiding spontaneously and without any difficulty. She has been ambulating with encouragement. Objective Vital signs: Temperature 96.3 F L 12/25/16 07:49 Pulse Rate 52 L 12/25/16 08:04 Respiratory Rate 16 12/25/16 07:49 Blood Pressure 140/72 H 12/25/16 07:49 Pulse Oximetry 97 - RA 12/25/16 07:49 EXAM General-NAD, alert, fluent speech HEENT-conjunctiva clear, sclera anicteric Lungs-respirations nonlabored, good airflow, breath sounds clear Cardiac-regular rhythm, S1 and S2 Abd-soft, nontender, bowel sounds present Ext-without edema Neuro-MAEW - Height/Weight/BMI: Height 1.57 m Weight 87 kg Body Mass Index 36.2 Results - Labs CBC & Chem 7: 12/25/16 04:13 12/25/16 04:13 Assessment and Plan (1) Small bowel obstruction Problem details: POA Current visit: No Status: Resolved DVT Prophylaxis: SCD's GI Prophylaxis: Protonix Resuscitation Status: Full Code Assessment and Plan: Impression Partial small bowel obstruction Multiple past abdominal surgeries-would make surgery for small bowel obstruction very complicated. Abdominal pain-improved Nausea and vomiting-improved with NG tube History of severe confusion last hospital stay. Possibly due to morphine/ Dilaudid; possible component of benzodiazepine withdrawal as well. Anxiety with chronic benzodiazepine use Depression, recently started on Prozac Insomnia, chronically on trazodone Type 2 diabetes mellitus on Lantus, metformin, Jardiance chronically Asthma history-currently well controlled without medication Multinodular goiter GERD Plan: NG discontinued 12/24, tolerating liquid diet this morning. Discussed with Dr. Bruno-diet to be advanced as tolerated. Blood sugars modestly elevated ranging 145-171 over the past 24 hours, resume metformin this evening as diet is advanced. Check KUB in a.m. to assure clearance of barium and resolution of dilated bowel loops. Patient encouraged to continue ambulating. Anticipate discharge 12/26 barring setback. Hospital Course Summary Disclaimer: The visit summary below is not to be considered part of the above Progress Note. Hospital Course: 12/20/16 Impression Small bowel obstruction Hypernatremia Acute abdominal pain with nausea and vomiting Type II diabetes Multinodal goiter Asthma Fibromyalgia Hyperlipidemia History of migraine headaches Plan Admit patient to inpatient status under the care of Dr. Garcia for small bowel obstruction. Consultation placed to Dr. Bruno for further surgical evaluation and treatment. At this point will hold off of on antibiotic treatment, as was discussed with Dr. Bruno. If patient develops increased fever, increased leukocytosis or other evidence of acute sepsis, will reconsider at that time. Repeat Venous lactate at 1930. Patient to be nothing by mouth, will place NG tube to low intermittent suction Will monitor Accu-Cheks carefully, at this time. Hold off on diabetes medication. Given patient's nothing by mouth status. Will continue with fentanyl for pain control, although it is quite short acting it may be difficult to control patient's pain. She states that she does not tolerate any morphine or Dilaudid derivatives. Caused significant hallucinations and her last hospital stay. 1/2 NS at 100 ml/hr for gently hydration given NPO status. Ativan as needed for anxiety or sleep given PO meds are on hold Recheck CBC and CMP tomorrow morning to follow blood counts, renal function and electrolytes. Will discuss further orders and plan of care with attending, Dr. Garcia. At time of discharge medical care will return to primary care provider, Dr. Osorio 12/21/2016 Impression Partial small bowel obstruction Multiple abdominal surgeries in the past would make surgery for small bowel obstruction very complicated. Abdominal pain -improved this morning Nausea and vomiting -improved with NG tube and Zofran History of severe confusion with morphine and Dilaudid-tolerating when necessary fentanyl Chronic benzodiazepine use-very drowsy with Ativan 0.5 mg IV, will change to 0.25 mg IV twice daily to avoid withdrawal and will have prn available Depression, recently started on Prozac Insomnia. Chronically on trazodone. She states she does not sleep well without her trazodone. Type 2 diabetes mellitus on Lantus-currently on hold and blood sugars well controlled Asthma history-currently well controlled without medication. When necessary albuterol ordered Plan The patient is fairly somnolent this morning. Ativan dose was decreased and frequency was decreased. She has received very little fentanyl as of this morning. Lantus is on hold. We'll give sliding scale insulin if needed. Recheck CBC and basic metabolic profile tomorrow. Patient's was updated. 12/23/16 13:18 Doing well this morning with suggestion of early return of bowel function. Nursing report a smear of stool overnight. Discussed with Dr. Zapien-we'll proceed with small bowel follow-through in the morning. Remains nothing by mouth with IV fluids and PPN for nutritional support. Alert, tolerating reduced dose of lorazepam without excessive sedation. Excess sedation present with Ativan 0.5 mg IV 3 times a day which was started on admission, changed on 12/21/2016 to 0.25 mg IV twice daily. No indication of benzodiazepine withdrawal or encephalopathy at present. Pain control is good with Toradol-last dose 12/21; has fentanyl available but has not used it since 12/20. Blood sugars remain well controlled ranging from 98-156 yesterday and today, required single shot of corrective insulin early this morning. Lantus is on hold. Sliding scale insulin if needed. PPN started yesterday for nutrition. Increased ambulation encouraged. Full CODE STATUS confirmed with patient. 12/24/16 14:30 SBFT showed no evidence of obstruction with a normal transit time of 60 min. NGT had 25 mL output from 0600 until nearly lunchtime. Remove NGT per Dr. Kapoor. Diet advanced to ice chips. K slightly low @ 3.5 - she is on PPN; discontinuing when current bag completed. 12/25/16 NG discontinued 12/24, tolerating liquid diet this morning. Discussed with Dr. Bruno-diet to be advanced as tolerated. Blood sugars modestly elevated ranging 145-171 over the past 24 hours, resume metformin this evening as diet is advanced. Check KUB in a.m. to assure clearance of barium and resolution of dilated bowel loops. Patient encouraged to continue ambulating. Anticipate discharge 12/26 barring setback.
--- NOTE | 2016-12-25 16:44 | Progress Note ---
DATE OF VISIT 12/25/2016 REASON FOR VISIT Follow bowel obstruction. SUBJECTIVE Rea is doing well today. She was advanced to regular diet consistency earlier by the hospitalist team. She tolerated lunch well. She continues to have some abdominal tenderness. She had a large amount of flatus overnight and has had three bowel movements since her small bowel series. Her last bowel movement was more like diarrhea. OBJECTIVE VITAL SIGNS: Temperature 96.3. Pulse 52. Blood pressure 140/72. Respiratory rate 16. Oxygen saturation 97% on room air. GENERAL: The patient is awake, alert, in no acute distress. HEART: Regular rate and rhythm. LUNGS: Clear to auscultation bilaterally. ABDOMEN: Soft, obese, minimally tender, nondistended. There is no guarding or rebound noted. IMPRESSION Partial small bowel obstruction secondary to dense intraabdominal adhesions - resolved radiographically and seems to be improving clinically. PLAN 1. Regular diet consistency today. 2. Continue laxatives. 3. If she continues to tolerate a regular diet consistency tomorrow then I think that she could be dismissed from the hospital. AKHIL
[2016-12-25] MEDS: METFORMIN 1,000 MG TABLET PO SCH (17:20)
[2016-12-25] MEDS: TRAZODONE 50 MG TABLET PO SCH (21:07)
[2016-12-25] MEDS: TRIAMCINOLONE 0.1% CREAM 15 G TUBE TOP SCH (21:12)
[2016-12-26] MEDS: INSULIN ASPART 100unit/ml INJECTION SQ PRN ×2 (06:21→11:08)
[2016-12-26] MEDS ORDERED: OMEPRAZOLE 20 MG CAPSULE PO SCH (06:30)
[2016-12-26 07:33] VITALS: BP 130/66; RESP 16; TEMP 95.8; O2SAT 98
--- NOTE | 2016-12-26 08:07 | XRay Report ---
Indication: resolving small bowel obstruction PROCEDURE: XR KUB w upright: Encounter: Initial Comparison: December 24, 2016 Findings: Contrast material seen throughout the colon to the level of the rectum. No abnormally dilated small bowel loops appreciated. No free air. Lung bases are clear. Impression: Apparently resolved partial small bowel obstruction. .
[2016-12-26] MEDS: ClonazePAM 0.5 MG TABLET PO SCH (08:42)
[2016-12-26] MEDS: METFORMIN 1,000 MG TABLET PO SCH (08:43)
[2016-12-26] MEDS: FLUoxetine 20 MG CAPSULE PO SCH (08:43)
[2016-12-26] MEDS: POLYETHYL GLYCOL 3350 17gm PACKET PO SCH (08:44)
[2016-12-26] MEDS: TRIAMCINOLONE 0.1% CREAM 15 G TUBE TOP SCH (08:44)
[2016-12-26] MEDS: CETIRIZINE 10 MG TABLET PO SCH (08:44)
[2016-12-26] MEDS: MONTELUKAST 10 MG TABLET PO SCH (08:44)
[2016-12-26] MEDS ORDERED: MUPIROCIN 2% OINTMENT 22gm EA NOSTRIL SCH (09:00)
[2016-12-26 09:01] VITALS: PULSE 50
--- NOTE | 2016-12-26 11:45 | Discharge Instructions ---
Discharge Plan - Med Rec/Dispo Referrals/Follow Up: Jeanna Osorio MD [Family Provider] - 1 Week Trae Bruno MD [Physician] - (as needed) Prescriptions: New Sennosides [Senokot] 2 tab PO BID #100 tablet Continue Insulin Glargine,Hum.rec.anlog [Lantus Solostar] 30 unit SQ HS Empagliflozin [Jardiance] 25 mg PO DAILY Cyanocobalamin (B-12) [Vit. B-12] 1,000 mg INJ Q2M Triamcinolone 0.1% Cream 15 G [Kenalog] 1 applicatio TOP BID Cetirizine HCl [Zyrtec] 10 mg PO DAILY Omeprazole 40 mg PO DAILY Mupirocin Ointment [Bactroban Ointmment] 1 applic TOP DAILY Metformin HCl 1,000 mg PO BID #0 tab clonazePAM [Clonazepam] 0.5 mg PO BID #0 tab Trazodone HCl 50 mg PO HS #0 tab Montelukast Sodium [Singulair] 10 mg PO DAILY FLUoxetine [Prozac] 20 mg PO DAILY Discharge Instructions/Outpatient Orders: Final Provider Discharge Instructions Location: Determined By Patient - Disposition 01 Discharged Home, Self-Care
--- NOTE | 2016-12-26 17:08 | Discharge Summary ---
Discharge Information Date of admission: 12/20/16 16:33 Anticipated date of discharge: 12/26/16 Attending Physician: Leela Garcia MD Primary care physician: Jeanna Osorio MD Consults: Trae Bruno - Discharge Diagnosis (1) Small bowel obstruction Status: Resolved Discharge Diagnosis: Present on admission - Laboratory Labs: On admission (12/20/16) white count was 12.2 with unremarkable differential, hemoglobin 13.8. Electrolytes were notable for sodium of 145, creatinine 0.9. Alkaline phosphatase was slightly elevated at 150 but other liver enzymes were normal. Lipase 46. Lactic acid 2.2 12/25/16 04:13 12/26/16 04:34 - Microbiology Blood cultures 2 negative after 5 days - Radiology Radiology: CT of the abdomen and pelvis on admission: Impression: Dilated fecalized small bowel in the central abdomen with a similar appearance to the prior CT again suggesting at least a moderate partial small bowel obstruction. This is in the region of high attenuation material in the omental area. This could represent hernia repair mesh. Retained surgical sponge material could have a similar appearance as a "gossypiboma". However this material is not radiographically apparent on multiple KUB studies making retained surgical sponge unlikely. Recommend correlation with the patient's surgical history. KUB on 12/20/16 demonstrated appropriately placed NG tube Upper GI with small bowel follow-through on 12/24/16: Impression: No evidence of a small bowel obstruction. Normal transit time of approximately 60 minutes, which is slightly more rapid than during the comparison study. KUB on 12/26/16 revealed minor residual barium from prior study but no residual bowel gas dilatation. History of Present Illness HPI: Patient is a 71-year-old female who was brought to the emergency room today for evaluation of acute abdominal pain. She was found to have an acute bowel obstruction, which has been a chronic condition for patient unfortunately. She reports that abdominal pain started this morning at which time she began having generalized abdominal pain accompanied with nausea and vomiting. Day pain got worse encouraging her to present to the emergency room for acute evaluation. Laboratory studies were obtained. White count was found be slightly elevated at 12.2, hemoglobin 13.8, hematocrit 41.6, platelet count 241, neutrophils 82% with 6% bandemia. Sodium is 145, potassium 4.7, BUN 19, creatinine 0.8, glucose 134, LFTs are normal, alkaline phosphatase elevated at 150, lipase 46, venous lactate 2.2. CT scan of the abdomen did reveal dilated small bowel loops, with moderate partial small bowel obstruction. Given these findings the hospitalist services were contacted and accepted patient for inpatient admission was surgical consultation to Dr. Bruno. Patient is seen on initial examination. She is alert, oriented and appears to be in a [id number] amount of abdominal discomfort. She reports that patient initiated this morning and symptoms are consistent with her past bowel obstructions. States that she has had 10 previous bowel obstructions. Hospital Course This is a general summary of the patient's hospital course. For more details refer to the complete medical record. Hospital course: Impression Small bowel obstruction, partial Hypernatremia Acute abdominal pain with nausea and vomiting Type II diabetes; without complications, chronic insulin use Multinodular goiter Asthma Fibromyalgia Hyperlipidemia History of migraine headaches Anxiety with chronic benzodiazepine use Hospital course Mrs. Bocanegra's hospitalized with SBO versus partial SBO. She was treated with IV fluids and antiemetics. Dr. Bruno was consulted. NG tube was placed for symptomatic management of recurrent nausea and vomiting. IV acetaminophen, Toradol, and Fentanyl were utilized for pain control due to past intolerance of morphine and Dilaudid and IV lorazepam for anxiety due to inability to continue home oral benzodiazepine. Conservative management was recommended by surgery due to prior complicated surgery for bowel obstruction and extensive adhesions. It was felt that if surgery became necessary transferred to [place] would be needed. The patient reported initial return of bowel function on 12/23 and underwent small bowel follow through study on 12/24 demonstrating no evidence of obstruction and normal transit time. Clear liquids were subsequently initiated and NG discontinued. Diet was advanced as tolerated with follow-up films demonstrating minimal residual barium from the bowel study but no evidence of dilated bowel loops. As diet was advanced home medications were resumed. Patient was felt stable for discharge on 12/26. Blood sugars were monitored with insulin available if needed since usual oral medications were not utilized while nothing by mouth. PPN was initiated on 12/22 due to slow return of bowel function and continued until bowel function improved. IV lorazepam at a dose of 0.25 mg twice daily was used for anxiety during hospitalization; 0.5 mg T excess sedation. On 12/26 the patient reported that she felt well. She denied dyspnea, nausea, or abdominal pain. She had 2 bowel movements within the prior 24 hours. Examination was unremarkable with nonlabored respirations and clear breath sounds. Abdomen was soft with no evidence of tenderness and bowel sounds were active. Dr. Bruno had recommended that the patient add Benefiber to her diet to minimize constipation and she will take Senokot as well twice daily. Remainder of home medications are unchanged from admission. Patient is asked to follow-up with Dr. Osorio in approximately one week for general reassessment and Dr. Bruno if needed. Discharge Plan - Med Rec/Dispo Referrals/Follow Up: Jeanna Osorio MD [Family Provider] - 1 Week Trae Bruno MD [Physician] - (as needed) Truvfidencio Instructions: Bowel Obstruction (DC) Prescriptions: New Sennosides [Senokot] 2 tab PO BID #100 tablet Continue Insulin Glargine,Hum.rec.anlog [Lantus Solostar] 30 unit SQ HS Empagliflozin [Jardiance] 25 mg PO DAILY Cyanocobalamin (B-12) [Vit. B-12] 1,000 mg INJ Q2M Triamcinolone 0.1% Cream 15 G [Kenalog] 1 applicatio TOP BID Cetirizine HCl [Zyrtec] 10 mg PO DAILY Omeprazole 40 mg PO DAILY Mupirocin Ointment [Bactroban Ointmment] 1 applic TOP DAILY Metformin HCl 1,000 mg PO BID #0 tab clonazePAM [Clonazepam] 0.5 mg PO BID #0 tab Trazodone HCl 50 mg PO HS #0 tab Montelukast Sodium [Singulair] 10 mg PO DAILY FLUoxetine [Prozac] 20 mg PO DAILY Discharge Instructions/Outpatient Orders: Final Provider Discharge Instructions Location: Determined By Patient - Disposition 01 Discharged Home, Self-Care
== END 2016-12-26 13:36 | disposition home or self-care (01) | DRG 389 ==
LOC: ED 13:26 → SRG 16:33
PROVIDERS: ADMIT Internal Medicine; ATTEND Internal Medicine